=== PATIENT | male | born 1935 | race Caucasian/White ===

== ENCOUNTER 2018-04-27 10:11 | Emergency (ER) | payer OTHER ==
[~2018-04-27] VITALS: Ht 185.4 cm; Wt 79.4 kg
--- NOTE | 2018-04-27 10:18 | NUR ---
PT BIB PA FROM SNF WITH A C/O GENERALIZED WEAKNESS. PER TRIAGE, PT FELL YESTERDAY AND THE FACILITY CALLED 911. PT REFUSED TO GO WITH RESCUE AT THAT TIME. PT IS AA&O X1. PT IS PLEASANT AND ANSWERS ALL QUESTIONS. PT HAS EQUAL, 5/5 BILATERAL HAND FORMING MACHINE TENDER, 5/5 DORSI FLEX BILATERAL FEET. PT IS ABLE TO HOLD EACH LEG UP FOR 5 SEC WITHOUT DRIFT. PT IS ON THE MONITOR AND CONTINUOUS PULSE OX. PT WAS CHANGED INTO A GOWN AND GRIPPER SOCKS PUT ON HIS FEET.
--- NOTE | 2018-04-27 10:19 | NUR ---
PT IS DNR/DNI - COMFORT MEASURES. COPY OF DNR/DNI IN CHART.
--- NOTE | 2018-04-27 10:25 | NUR ---
DR. ANDREWS IS AT THE BEDSIDE W/ PA-C STUDENT.
--- NOTE | 2018-04-27 10:30 | NUR ---
CALLED [facility]
--- NOTE | 2018-04-27 10:59 | NUR ---
SAIRA BORRERO [phone] SECOND [address]
[2018-04-27 11:40] LABS: LYMPHOCYTES # (AUTO) 1.4 /CMM (0.8-4.8); MEAN CORPUSCULAR HGB CONC 35 g/dl (31.0-36.0); MONOCYTES # (AUTO) 0.9 /CMM (0.1-1.30); WHITE BLOOD COUNT (AUTO) 9.9 K/uL (4.3-11.0)
[2018-04-27 11:42] LABS: BASOPHILS # (AUTO) 0.2 /CMM (0.0-0.2); BASOPHILS % (AUTO) 2.1 % (0.0-2.0); EOSINOPHILS % (AUTO) 0.2 % (0.0-6.0); HEMATOCRIT 43 % (39-51); HEMOGLOBIN 14.9 g/dL (13.5-17.5); LYMPHOCYTES % (AUTO) 13.8 % (20.0-44.0); MEAN CORPUSCULAR VOLUME 98 fL (80-96); MONOCYTES % (AUTO) 8.9 % (2.0-12.0); NEUTROPHILS # (AUTO) 7.4 /CMM (1.8-8.9); PLATELET COUNT (AUTO) 246 /CMM (150-450); RED BLOOD CELL COUNT(AUTO) 4.33 MIL/uL (4.5-6.0)
[2018-04-27 11:49] LABS: CALCIUM, SERUM 9.3 mg/dL (8.5-10.1); CARBON DIOXIDE 27 mmol/L (21-32); CHLORIDE 105 mmol/L (98-107); GLUCOSE 143 mg/dL (74-106); POTASSIUM 4.7 mmol/L (3.5-5.1); SODIUM SERUM 139 mmol/L (136-145); UREA NITROGEN, BLOOD 14 mg/dL (7-18)
[2018-04-27 11:57] LABS: TROPONIN I < 0.017 ng/mL (0.00-0.056)
--- NOTE | 2018-04-27 12:03 | NUR ---
CALLED [facility] FOR TRANSPORT BACK TO [facility] [place], ETA 20-30 MIN, TRIP #[id number]
--- NOTE | 2018-04-27 12:36 | NUR ---
Patient discharged to [id number] in stable condition. Written and verbal after care instructions given to ems verbalizes understanding of instruction.
[2018-04-27 12:41] VITALS: BP 122/78
== END 2018-04-27 12:41 | disposition home or self-care (01) ==
LOC: ER 10:12
DX: R53.1 Weakness (principal); I10 Essential (primary) hypertension; G30.9 Alzheimer's disease, unspecified; F02.80 Dementia in other diseases classified elsewhere, unspecified severity, without behavioral disturbance, psychotic disturbance, mood disturbance, and anxiety; G20 Parkinson's disease; Z88.6 Allergy status to analgesic agent
CPT/HCPCS: 36415; 71045; 80048; 84484; 85025; 93005; 99285; A4606; Z7610

== ENCOUNTER 2018-04-29 19:09 | Inpatient (IN) | payer OTHER ==
[~2018-04-29] VITALS: Ht 182.9 cm; Wt 86.2 kg
--- NOTE | 2018-04-29 19:51 | NUR ---
SHAHNAZ FROM [facility] FOR AMS SINCE FRIDAY. AAOX2. UNKNOWN BASELINE. PT PLACED ON METER READING CLERK AND POX, PT NOTED TO BE SINUS BRADYCARDIC 47BPM. PT ABLE TO FOLLOW COMMANDS AND ABLE TO HOLD UP ARMS AND LEGS WITHOUT ANY WEAKNESS. PT STATES "IM NOT SURE WHY I AM HERE" WHEN ASKED WHY HE WAS BROUGHT TO THE ER. PT DENIES ANY PAIN OR N/V/D. NO S/S OF ACUTE DISTRESS NOTED. BEDSIDE FOR EVAL. WILL CONTINUE TO MONITOR PT.
[2018-04-29 20:03] LABS: BASOPHILS # (AUTO) 0.3 /CMM (0.0-0.2); BASOPHILS % (AUTO) 4.2 % (0.0-2.0); EOSINOPHILS % (AUTO) 1.2 % (0.0-6.0); HEMATOCRIT 44 % (39-51); HEMOGLOBIN 15.4 g/dL (13.5-17.5); LYMPHOCYTES # (AUTO) 1.6 /CMM (0.8-4.8); LYMPHOCYTES % (AUTO) 20.7 % (20.0-44.0); MEAN CORPUSCULAR HEMOGLOBIN 35 PG (26.0-33.0); MEAN CORPUSCULAR HGB CONC 35 g/dl (31.0-36.0); MEAN CORPUSCULAR VOLUME 100 fL (80-96); MONOCYTES # (AUTO) 0.7 /CMM (0.1-1.30); NEUTROPHILS # (AUTO) 5.2 /CMM (1.8-8.9); NEUTROPHILS % (AUTO) 64.9 % (43.0-81.0); PLATELET COUNT (AUTO) 246 /CMM (150-450); RDW COEFFICIENT OF VARIATION 12.1 (11.5-15.0); RED BLOOD CELL COUNT(AUTO) 4.45 MIL/uL (4.5-6.0); WHITE BLOOD COUNT (AUTO) 7.9 K/uL (4.3-11.0)
--- NOTE | 2018-04-29 20:20 | NUR ---
PT RETURNED FROM CT.
[2018-04-29 20:21] LABS: INR 1.01 (0.87-1.13)
[2018-04-29 20:25] LABS: CARBON DIOXIDE 28 mmol/L (21-32); CHLORIDE 106 mmol/L (98-107); CREATININE 0.9 mg/dL (0.6-1.3); GLUCOSE 139 mg/dL (74-106); POTASSIUM 4.2 mmol/L (3.5-5.1); SODIUM SERUM 143 mmol/L (136-145); UREA NITROGEN, BLOOD 15 mg/dL (7-18)
[2018-04-29 20:31] LABS: ALANINE AMINOTRANSFERASE 25 U/L (12-78); ALBUMIN 3.5 g/dL (3.4-5.0); ALKALINE PHOSPHATASE 84 U/L (46-116); ASPARTATE AMINOTRANSFERASE 34 U/L (15-37); BILIRUBIN,DIRECT 0.3 mg/dL (0.0-0.2); BILIRUBIN,TOTAL 1.3 mg/dL (0.2-1.0); TOTAL PROTEIN, SERUM 6.8 g/dL (6.4-8.2)
[2018-04-29 20:33] LABS: TROPONIN I 0.032 ng/mL (0.00-0.056)
--- NOTE | 2018-04-29 21:00 | NUR ---
Patient is resting comfortably in bed with with no s/s of distress noted. VSS
--- NOTE | 2018-04-29 21:13 | NUR ---
TELE 327-2 FOR GENERAL WEAKNESS AND BRADYCARDIA, ADMITTING
[2018-04-29 21:32] LABS: BILIRUBIN,URINE 1+ (NEGATIVE); BLOOD, URINE 1+ Ery/uL (NEGATIVE); COLOR,URINE DARK YELLO (YELLOW); KETONES,URINE 1+ (NEGATIVE); LEUKOCYTE ESTERASE ,URINE NEGATIVE (NEGATIVE); NITRITE, URINE NEGATIVE (NEGATIVE); PH,URINE 5.5 (5.0-8.0); PROTEIN,URINE 2+ mg/dl (NEGATIVE); UGLUCOSE NEGATIVE (NEGATIVE)
--- NOTE | 2018-04-29 21:35 | NUR ---
report given to AXLE BEARING POLISHER RV for ROSEANNE.
[2018-04-29] MEDS ORDERED: BENA10TA9 PO (21:40)
[2018-04-29] MEDS ORDERED: DONE5TAB34 PO (21:40)
[2018-04-29] MEDS ORDERED: MEMA10TA PO (21:40)
[2018-04-29] MEDS ORDERED: PARO20TA7 PO (21:40)
[2018-04-29] MEDS ORDERED: ACET-2067 PO (21:40)
[2018-04-29] MEDS ORDERED: AZIT250T13 PO (21:40)
[2018-04-29 21:41] LABS: APPEARANCE,URINE Slightly Cloudy (CLEAR)
--- NOTE | 2018-04-29 21:50 | NUR ---
RN NOTES RECEIVED PATIENT FROM ER FOR DX PNA, BRADYCARDIA. PATIENT AO X 1, ABLE TO MAKE NEEDS KNOWN. NO ACUTE DISTRESS NOTED. DENIES ANY PAIN AT THIS TIME. TELE READING SINUS NAE HR 49. IV SITE PATENT, INTACT; FLUSHED. SKIN INTACT. SAFETY REMINDERS GIVEN. PATIENT GIVEN ORIENTATION TO ROOM AND UNIT. ON LOW BED WITH BILATERAL UPPER SIDE RAIL UP; CALL MILLER WITHIN EASY REACH. WILL CONTINUE TO MONITOR.
[2018-04-29 21:55] LABS: BACTERIA,URINE None seen /HPF (None Seen); SQUAMOUS EPITHELIAL CELL,UR Rare /HPF (None Seen); WBC,URINE 0-2 /HPF (0-3)
[2018-04-29 22:10] VITALS: BP 128/51
[2018-04-29] MEDS ORDERED: ACETAMINOPHEN 325 MG TABLET PO PRN (22:30)
[2018-04-29] MEDS ORDERED: ALBUTEROL FS 2.5 MG/3 ML VIAL.NEB NEB PRN (23:00)
[2018-04-29] MEDS ORDERED: IV NS 0.9% 1,000 ML BAG IV SCH (23:00)
[2018-04-29] MEDS: IV NS 0.9% 1,000 ML IV PRN (23:11)
[2018-04-29] MEDS ORDERED: CEFTRIAXONE 1 G VIAL ONE (23:34)
[2018-04-29] MEDS: CEFTRIAXONE 1 G in IV D5W 50 ML IV SCH (23:39)
[2018-04-30 04:00] VITALS: BP 159/65
[2018-04-30] MEDS: DONEPEZIL 5 MG TABLET PO SCH ×2 (06:02→17:28)
--- NOTE | 2018-04-30 06:10 | NUR ---
NOTIFIED DR. BORRERO THAT PATIENT IS VERY AGITATED, TRYING TO GET OUT OF BED; POOR SAFETY AWARENESS. MD ORDERED HALDOL 1 MG IM Q 6 HOURS PRN, NOTED AND CARRIED OUT.
[2018-04-30] MEDS: HALOPERIDOL LACTATE INJ 5 MG/ML VIAL IM PRN ×2 (06:30→14:35)
--- NOTE | 2018-04-30 06:50 | NUR ---
RN NOTES PATIENT AWAKE, RESPIRATIONS EVEN. NO SIGNS OF PAIN NOTED. MUCH CALMER NOW POST HALDOL ADMINISTRATION. DUE MEDS GIVEN WITH NO ASE NOTED. NEEDS ATTENDED. KEPT CLEAN, DRY, AND COMFORTABLE. SAFETY PRECAUTIONS AND COMFORT MEASURES IN PLACE. WILL GIVE REPORT TO DAY SHIFT FOR CONTINUITY OF CARE.
--- NOTE | 2018-04-30 07:35 | NUR ---
RN OPENING NOTES RECEIVED PT. PT IS STABLE AND IN BED. NO S/S OF RESPIRATORY DISTRESS OR SOB. NO C/O PAIN AT THIS TIME. PT IS A/OX1 WITH AMS BY COMPARISON TO BASELINE ACCORDING TO STATEMENT FROM RESIDENTIAL FACILITY. PS IN ON TELE MONITO, HR FREQUENTLY BETWEEN 40-50 BPM FOR SINUS NAE. IV ACCESS LOCATED ON RFA 18G, INFUSING NS AT 75 ML/HR. PER APPRENTICE FUNERAL DIRECTOR REPORT, PT FREQUENTLY ATTEMPTING TO GET OUT OF BED DESPITE CONTINUED REORIENTATION REGARDING PT'S SAFETY CONCERNS. BED ALARM PLACED IN ON POSITION. SAFETY MEASURES IN PLACE, CALL LIGHT WITHIN REACH. WILL CONTINUE TO MONITOR.
[2018-04-30] MEDS: AZITHROMYCIN 250 MG TABLET PO SCH (08:10)
[2018-04-30] MEDS: MEMANTINE HCL 5 MG TABLET PO SCH (08:10)
[2018-04-30] MEDS: PANTOPRAZOLE 40 MG TABLET.DR PO SCH (08:10)
[2018-04-30] MEDS: PAROXETINE HCL 20 MG TABLET PO SCH (08:11)
[2018-04-30] MEDS: BENAZEPRIL HCL 10 MG TABLET PO SCH (08:13)
[2018-04-30] MEDS: ENOXAPARIN SODIUM 30 MG/0.3 ML DISP.SYRIN SQ SCH (08:23)
[2018-04-30 09:23] VITALS: BP 148/61
[2018-04-30 14:55] LABS: BASOPHILS # (AUTO) 0.1 /CMM (0.0-0.2); BASOPHILS % (AUTO) 0.7 % (0.0-2.0); EOSINOPHILS % (AUTO) 0.2 % (0.0-6.0); HEMATOCRIT 34 % (39-51); HEMOGLOBIN 11.7 g/dL (13.5-17.5); LYMPHOCYTES # (AUTO) 1.1 /CMM (0.8-4.8); LYMPHOCYTES % (AUTO) 12.1 % (20.0-44.0); MEAN CORPUSCULAR HEMOGLOBIN 35 PG (26.0-33.0); MEAN CORPUSCULAR HGB CONC 35 g/dl (31.0-36.0); MEAN CORPUSCULAR VOLUME 101 fL (80-96); MONOCYTES # (AUTO) 0.7 /CMM (0.1-1.30); MONOCYTES % (AUTO) 7.3 % (2.0-12.0); NEUTROPHILS # (AUTO) 7.5 /CMM (1.8-8.9); NEUTROPHILS % (AUTO) 79.7 % (43.0-81.0); PLATELET COUNT (AUTO) 193 /CMM (150-450); RED BLOOD CELL COUNT(AUTO) 3.34 MIL/uL (4.5-6.0); WHITE BLOOD COUNT (AUTO) 9.4 K/uL (4.3-11.0)
[2018-04-30 16:21] VITALS: BP 119/79
[2018-04-30] MEDS: LACTOBACILLUS RHAMNOSUS GG 1 EACH CAP.SPRINK PO SCH (17:29)
--- NOTE | 2018-04-30 19:02 | NUR ---
RN CLOSING NOTE PT IN BED RESTING. PT EXPERIENCED EPISODES OF ASPIRATION WITH MEALS/AFTERNOON MEDICATIONS. WILL ENDORSE TO PRODUCTION PLANNER SCHEDULER, PO MEDS/FOOD HELD FOR NOW. ALL PT NEEDS ANTICIPATED AND MET. SAFETY MEASURES IN PLACE, CALL LIGHT IN REACH. WILL ENDORSE TO PRODUCTION PLANNER SCHEDULER FOR ROSEANNE.
--- NOTE | 2018-04-30 19:30 | NUR ---
RN NOTES RECEIVED PATIENT IN BED ASLEEP, EASILY AROUSABLE. AO X 1, ABLE TO MAKE NEEDS KNOWN. NO ACUTE DISTRESS NOTED. NO SIGNS OF PAIN NOTED. IV SITE PATENT, INTACT; IVF INFUSING ORDERED. ON LOW BED WITH BILATERAL UPPER SIDE RAILS UP. CALL MILLER WITHIN EASY REACH. WILL CONTINUE TO MONITOR.
[2018-04-30 20:00] VITALS: BP 128/57
--- NOTE | 2018-04-30 21:24 | NUR ---
RN NOTES DR. BORRERO CALLED BACK; MADE AWARE THAT PATIENT WAS NOT TOLERATING ANYTHING PO. DR. BORRERO ORDERED TO PUT PATIENT NPO AND ST EVAL IN AM; NOTED AND CARRIED OUT.
[2018-04-30] MEDS: CEFTRIAXONE 1 G in IV D5W 50 ML IV SCH (22:25)
--- NOTE | 2018-05-01 06:10 | NUR ---
RN NOTES PATIENT ASLEEP, AROUSABLE. RESPIRATIONS EVEN. NO SIGNS OF PAIN NOTED. NEEDS ATTENDED. KEPT CLEAN, DRY, AND COMFORTABLE. REPOSITIONED Q 2 HOURS. SAFETY PRECAUTIONS AND COMFORT MEASURES IN PLACE. WILL GIVE REPORT TO DAY SHIFT FOR CONTINUITY OF CARE.
[2018-05-01] MEDS: IV NS 0.9% 1,000 ML IV PRN ×2 (06:37→22:41)
--- NOTE | 2018-05-01 07:20 | NUR ---
RN NOTES RECEIVED PT. PT IN BED ASLEEP, AROUSABLE. NO S/S OF RESPIRATORY DISTRESS OR SOB. NO C/O PAIN AT THIS TIME. KEPT NPO AT THIS TIME, WAITING FOR ST EVAL. PT IS A/OX1, IV ACCESS LOCATED ON RFA 18G, INFUSING NS AT 75 ML/HR. PER FLYING I INSTRUCTOR REPORT, PT FREQUENTLY ATTEMPTING TO GET OUT OF BED DESPITE CONTINUED REORIENTATION REGARDING PT'S SAFETY CONCERNS. BED ALARM PLACED IN ON POSITION. SAFETY MEASURES IN PLACE, CALL LIGHT WITHIN REACH. WILL CONTINUE TO MONITOR.
[2018-05-01] MEDS: PANTOPRAZOLE 40 MG TABLET.DR PO SCH (07:30)
[2018-05-01 07:36] LABS: CALCIUM, SERUM 8.3 mg/dL (8.5-10.1); CARBON DIOXIDE 26 mmol/L (21-32); CHLORIDE 112 mmol/L (98-107); CREATININE 0.8 mg/dL (0.6-1.3); GLUCOSE 110 mg/dL (74-106); MAGNESIUM 1.8 mg/dL (1.8-2.4); POTASSIUM 3.8 mmol/L (3.5-5.1); SODIUM SERUM 146 mmol/L (136-145); UREA NITROGEN, BLOOD 12 mg/dL (7-18)
[2018-05-01 08:00] VITALS: BP 148/85
[2018-05-01] MEDS: MEMANTINE HCL 5 MG TABLET PO SCH (09:00)
[2018-05-01] MEDS: BENAZEPRIL HCL 10 MG TABLET PO SCH (09:00)
[2018-05-01] MEDS: AZITHROMYCIN 250 MG TABLET PO SCH (09:00)
[2018-05-01] MEDS: PAROXETINE HCL 20 MG TABLET PO SCH (09:00)
[2018-05-01] MEDS: LACTOBACILLUS RHAMNOSUS GG 1 EACH CAP.SPRINK PO SCH ×2 (09:00→17:17)
[2018-05-01] MEDS: ENOXAPARIN SODIUM 30 MG/0.3 ML DISP.SYRIN SQ SCH (09:43)
--- NOTE | 2018-05-01 10:39 | NUR ---
RN NOTES RECEIVED ORDER FOR VIDEO SWALLOW STUDY AND AND PT EVAL. ORDER NOTED AND CARRIED OUT.
[2018-05-01] MEDS ORDERED: BARIUM SULFATE 240 ML ORAL.SUSP PO ONE (11:01)
[2018-05-01] MEDS ORDERED: BARIUM SULFATE 148 GM SUSP.RECON PO ONE (11:01)
[2018-05-01] MEDS: HALOPERIDOL LACTATE INJ 5 MG/ML VIAL IM PRN (14:55)
[2018-05-01 16:00] VITALS: BP 131/80
[2018-05-01] MEDS: DONEPEZIL 5 MG TABLET PO SCH (17:17)
--- NOTE | 2018-05-01 17:38 | NUR ---
RN NOTES DURING DINNER, OBSERVED PATIENT COUGHED AFTER THE THIRD SPOON. INSTRUCTED PATIENT TO SWALLOW BUT PATIENT DOES NOT FOLLOW COMMANDS. STOPPED FEEDING THE PATIENT AND INFORMED DR. BORRERO. FOR SAFETY PATIENT WILL BE NPO AT THIS TIME.
--- NOTE | 2018-05-01 18:28 | NUR ---
RN NOTES PATIENT A/OX1, WITH EPISODE OF CONFUSION AT TIMES, ATTEMPTED TO GET OUT OF BED A COUPLE OF TIMES, REORIENTED, BREATHING EVEN AND UNLABORED, NO DISTRESS NOTED, KEPT PATIENT NPO AT THIS TIME FOR SAFETY. ASSISTED PATIENT WITH TURNING AND REPOSITIONING, BUT PATIENT ABLE TO MOVE ALL EXTREMITIES INDEPENDENTLY, AM CARE AND PM CARE RENDERED, SKIN CARE PROVIDED. PATIENT'S NEEDS ATTENDED AND MET. CALL LIGHT WITHIN REACH, BED ALARM ON, BED IN LOW AND LOCKED POSITION, SIDERAILS X2 UP, WILL CONTINUE TO MONITOR.
--- NOTE | 2018-05-01 19:50 | NUR ---
MS RN INITIAL NOTE PT IS IN BED SLEEPING, EASILY AROUSED. NO SIGNS OF SOB OR DISTRESS, BREATHING EVENLY AND UNLABORED PN RA. IV ACCESS IS INTACT AND PATENT, WRAPPED IN KERLIX WITH A SLEEVE. BED IS IN LOW AND LOCKED POSITION, BED ALARM IS ON. WILL CONTINUE TO MONITOR PT
[2018-05-01 20:00] VITALS: BP 150/69
[2018-05-01] MEDS: CEFTRIAXONE 1 G in IV D5W 50 ML IV SCH (22:34)
[2018-05-02 06:52] LABS: BASOPHILS % (AUTO) 0.3 % (0.0-2.0); EOSINOPHILS % (AUTO) 2.1 % (0.0-6.0); HEMATOCRIT 41 % (39-51); HEMOGLOBIN 13.8 g/dL (13.5-17.5); LYMPHOCYTES # (AUTO) 1.4 /CMM (0.8-4.8); LYMPHOCYTES % (AUTO) 22.9 % (20.0-44.0); MEAN CORPUSCULAR HEMOGLOBIN 35 PG (26.0-33.0); MEAN CORPUSCULAR HGB CONC 34 g/dl (31.0-36.0); MEAN CORPUSCULAR VOLUME 103 fL (80-96); MONOCYTES # (AUTO) 0.6 /CMM (0.1-1.30); MONOCYTES % (AUTO) 10.7 % (2.0-12.0); NEUTROPHILS # (AUTO) 3.8 /CMM (1.8-8.9); PLATELET COUNT (AUTO) 208 /CMM (150-450); RDW COEFFICIENT OF VARIATION 12.5 (11.5-15.0); RED BLOOD CELL COUNT(AUTO) 3.98 MIL/uL (4.5-6.0); WHITE BLOOD COUNT (AUTO) 5.9 K/uL (4.3-11.0)
--- NOTE | 2018-05-02 06:54 | NUR ---
MS RN CLOSING NOTE PT IS IN BED RESTING. NO SIGNS OF SOB OR DISTRESS, BREATHING EVENLY AND UNLABORED. IV ACCESS IS INTACT AND PATENT. ALL NEEDS WERE ANTICIPATED AND MET. BED IS IN LOW AND LOCKED POSITION, 3X SIDE RAILS ARE UP . BED ALARM IS IN ON. WILL ENDORSE TO DAYSHIFT
[2018-05-02 07:15] LABS: CALCIUM, SERUM 8.4 mg/dL (8.5-10.1); CARBON DIOXIDE 23 mmol/L (21-32); CHLORIDE 112 mmol/L (98-107); CREATININE 0.8 mg/dL (0.6-1.3); GLUCOSE 122 mg/dL (74-106); MAGNESIUM 1.8 mg/dL (1.8-2.4); POTASSIUM 3.7 mmol/L (3.5-5.1); SODIUM SERUM 145 mmol/L (136-145); UREA NITROGEN, BLOOD 11 mg/dL (7-18)
[2018-05-02] MEDS: PANTOPRAZOLE 40 MG TABLET.DR PO SCH (07:30)
--- NOTE | 2018-05-02 07:34 | NUR ---
MS RN OPENING NOTES RECEIVED PT LAYING IN BED WITH HOB SLIGHTLY ELEVATED. PT APPEARS TO BE A/O X1, RESPIRATIONS ARE EVEN AND UNLABORED, NOT IN ANY ACUTE DISTRESS NOTED. DENIES ANY PAIN AT THIS TIME. NO C/O N/V, SOB NOTED. IV SITE INTACT, NO INFILTRATION NOTED. IV FLUIDS RUNNING AT 75ML/HR. UPON REPORT, WAS INFORMED THAT PT TRIED TO GET OUT OF BED DURING DAY SHIFT, BUT DURING THE NIGHT PT WAS CALM. INSTRUCTED PT TO USE CALL LIGHT WHEN ASSISTANCE IS NEEDED, CALL LIGHT IS LEFT WITHIN REACH. REORIENTED PT. SAFETY MEASURES ARE IN PLACE. WILL MONITOR FOR CONTINUITY OF CARE.
[2018-05-02 08:00] VITALS: BP 149/76
[2018-05-02] MEDS: BENAZEPRIL HCL 10 MG TABLET PO SCH (09:00)
[2018-05-02] MEDS: PAROXETINE HCL 20 MG TABLET PO SCH (09:00)
[2018-05-02] MEDS: LACTOBACILLUS RHAMNOSUS GG 1 EACH CAP.SPRINK PO SCH ×2 (09:00→17:00)
[2018-05-02] MEDS: AZITHROMYCIN 250 MG TABLET PO SCH (09:00)
[2018-05-02] MEDS: MEMANTINE HCL 5 MG TABLET PO SCH (09:00)
[2018-05-02] MEDS: ENOXAPARIN SODIUM 30 MG/0.3 ML DISP.SYRIN SQ SCH (09:03)
--- NOTE | 2018-05-02 09:10 | NUR ---
MS RN NOTES PT IS UNABLE TO SWALLOW, AT RISK FOR ASPIRATION. PT IS ALSO CURRENTLY NPO. WILL CONTINUE TO MONITOR.
[2018-05-02] MEDS ORDERED: hydrALAZINE HCL IV 20 MG VIAL IV PRN (12:00)
[2018-05-02] MEDS: IV NS 0.9% 1,000 ML IV PRN (13:34)
--- NOTE | 2018-05-02 16:50 | NUR ---
MS RN NOTES-- ST EVAL ST EVAL DONE. PT IS AT HIGH RISK OF ASPIRATION. PT UNABLE TO SWALLOW HONEY THICKENED LIQUIDS, PER ST. HOB KEPT ELEVATED TO PREVENT ASPIRATION.
[2018-05-02] MEDS: DONEPEZIL 5 MG TABLET PO SCH (18:00)
--- NOTE | 2018-05-02 18:19 | NUR ---
MS RN CLOSING NOTES ALL NEEDS MET AND RENDERED. PT REMAINS A/O X1, AFEBRILE. RESPIRATIONS ARE EVEN AND UNLABORED. HOB KEPT ELEVATED FOR RISK FOR ASPIRATION. REORIENTED PT. REPOSITIONED PER PROTOCOL. IV SITE INTACT, NO INFILTRATION NOTED. DRESSING KEPT CLEAN AND DRY. IV FLUIDS RUNNING AT 75ML/HR, TOLERATING WELL. SAFETY MEASURES ARE IN PLACE. BED ALARM IS ON, BED IS IN ITS LOWEST POSITION, SIDE RAILS UP. WILL ENDORSE TO NEXT SHIFT FOR CONTINUITY OF CARE.
[2018-05-02 20:00] VITALS: BP 151/70
--- NOTE | 2018-05-02 20:00 | NUR ---
MS HEALTH DATA ANALYST INITIAL NOTES PT SEEN IN BED AWAKE AND ALERT , RESPIRATION EVEN AND NON-LABORED, RE-ORIENTED WHERE HE AT AND HOW TO USED THE CALL LIGHTS SYSTEM. HE STILL WITH IVF NS AT 75ML/HR INFUSING AT THIS TIME. SKIN WARM AND DRY TO TOUCH, NO EDEMA NOTED. NO SIGNS OF ANY DISCOMFORT OR ANY ACUTE DISTRESS NOTED. KEPT HIM HOB ELEVATED AT ALL TIMES FOR ASPIRATION PRECAUTION. BED ALARM SET AND SIDE RAILS X3 UP AND BE IN LOW AND LOCK IN POSITION. WILL CONTINUE MONITORING.
[2018-05-02] MEDS: CEFTRIAXONE 1 G in IV D5W 50 ML IV SCH (23:43)
[2018-05-03] MEDS: IV NS 0.9% 1,000 ML IV PRN (03:52)
--- NOTE | 2018-05-03 07:00 | NUR ---
MS REGISTERED OCCUPATIONAL THERAPIST CLOSING NOTES PT AWAKE AND ALERT AT THIS TIME AFTER MORNING CARE DONE. IVF NS STILL INFUSING. STABLE PAN THE NIGHT AND SLEPT WELL. RESPIRATION EVEN AND NON-LABORED. NO AGITATION NOTED AT THIS TIME. KEPT HIM WARM AND COMFORTABLE AT ALL TIMES. ENDORSE TO AM NURSE SOUMYA/RN FOR CONTINUITY OF CARE. BED ALARM SET FOR PT SAFETY. BED IN LOW AND LOCK IN POSITION WITH SIDE RAILS X4 UP .
--- NOTE | 2018-05-03 07:20 | NUR ---
MSRN OPENING. PT RECEIVED A&0X1, WAKING AND RESTING IN BED. PT NPO. PT SPEECH SLURRED AND DIFFICULT TO UNDERSTAND. PT WITHOUT S/S OD RESP DISTRESS, LUNGS AUSCULTATED WITH SOME CRACKLES AND DIMINISHED IN LOWER LOBES. PT DENIES PAIN AND IS WITHOUT S/S OF DISTRESS OR DISCOMFORT. PT WITH IVC AT R FA INTACT AND OPERATIONAL AND BANDAGED FOR SAFETY, FLUIDS PER RX. PT BED IN LOWEST LOCKED POSITION WITH HOB EL;EVATED, HANDRAILSX2, BED ALARM ON AND CALL MILLER WITHIN REACH. PT BEEFED ON TODAY'S POC, WILL REORIENTATE NEEDED.
[2018-05-03] MEDS: PANTOPRAZOLE 40 MG TABLET.DR PO SCH (07:30)
[2018-05-03 07:39] LABS: BASOPHILS # (AUTO) 0.1 /CMM (0.0-0.2); BASOPHILS % (AUTO) 1.1 % (0.0-2.0); EOSINOPHILS % (AUTO) 0.6 % (0.0-6.0); HEMATOCRIT 44 % (39-51); LYMPHOCYTES # (AUTO) 1.1 /CMM (0.8-4.8); LYMPHOCYTES % (AUTO) 14.9 % (20.0-44.0); MEAN CORPUSCULAR HEMOGLOBIN 34 PG (26.0-33.0); MEAN CORPUSCULAR HGB CONC 34 g/dl (31.0-36.0); MEAN CORPUSCULAR VOLUME 102 fL (80-96); MONOCYTES # (AUTO) 0.5 /CMM (0.1-1.30); MONOCYTES % (AUTO) 6.6 % (2.0-12.0); NEUTROPHILS # (AUTO) 5.7 /CMM (1.8-8.9); NEUTROPHILS % (AUTO) 76.8 % (43.0-81.0); PLATELET COUNT (AUTO) 239 /CMM (150-450); RDW COEFFICIENT OF VARIATION 12.7 (11.5-15.0); RED BLOOD CELL COUNT(AUTO) 4.36 MIL/uL (4.5-6.0); WHITE BLOOD COUNT (AUTO) 7.5 K/uL (4.3-11.0)
[2018-05-03 07:56] LABS: CALCIUM, SERUM 8.6 mg/dL (8.5-10.1); CARBON DIOXIDE 21 mmol/L (21-32); CHLORIDE 109 mmol/L (98-107); CREATININE 0.8 mg/dL (0.6-1.3); GLUCOSE 123 mg/dL (74-106); MAGNESIUM 1.8 mg/dL (1.8-2.4); PHOSPHORUS 3.1 mg/dL (2.5-4.9); POTASSIUM 3.6 mmol/L (3.5-5.1); SODIUM SERUM 146 mmol/L (136-145); UREA NITROGEN, BLOOD 13 mg/dL (7-18)
[2018-05-03 08:00] VITALS: BP 152/70
[2018-05-03] MEDS: LACTOBACILLUS RHAMNOSUS GG 1 EACH CAP.SPRINK PO SCH ×2 (09:00→16:14)
[2018-05-03] MEDS: AZITHROMYCIN 250 MG TABLET PO SCH (09:00)
[2018-05-03] MEDS: PAROXETINE HCL 20 MG TABLET PO SCH ×2 (09:00→16:14)
[2018-05-03] MEDS: MEMANTINE HCL 5 MG TABLET PO SCH ×2 (09:00→16:15)
[2018-05-03] MEDS: BENAZEPRIL HCL 10 MG TABLET PO SCH ×2 (09:00→16:15)
[2018-05-03] MEDS: ENOXAPARIN SODIUM 30 MG/0.3 ML DISP.SYRIN SQ SCH (09:32)
--- NOTE | 2018-05-03 11:50 | NUR ---
MSRN NOTE. PT G.TUBE PLACED AND AIR 'SWOOSH' AUSCULTATED WITH RNX2, STAT XRAY ORDERED FOR PLACEMENT CONFIRMATION. TUBE CLAMPED AT THIS TIME. PT STARTED WITH RAFAELA FOR SAFETY.
--- NOTE | 2018-05-03 13:00 | NUR ---
MSRN NOTES. PT WITH AUDIBLE GURGLE, AFTER ORAL SUCTIONING RT CALLED FOR DEEP SUCTIONING. 150CC APPROX REMOVED. PT SAO2 98%. NO OBVIOUS RESP DISTRESS.
--- NOTE | 2018-05-03 13:30 | NUR ---
MSRN NOTES. NG TUBE PLACEMENT ADVANCED PER CXR. GASTRIC SECRETIONS ASPIRATED.
[2018-05-03 16:00] VITALS: BP 165/80
--- NOTE | 2018-05-03 16:00 | NUR ---
MSRN NOTES. BAY STOCKER CC REQUESTING SKIPPED AM LOTENSIN, NAMENDA AND PAXIL BE ADMINISTERED.
[2018-05-03] MEDS ORDERED: ALBUTEROL FS 2.5 MG/3 ML VIAL.NEB NEB SCH ×2 (17:00→21:00)
[2018-05-03] MEDS: DONEPEZIL 5 MG TABLET PO SCH (17:22)
--- NOTE | 2018-05-03 19:10 | NUR ---
MSRN CLSOING. PT REMAINS A&0X1. PT NPO. PT WITH BI LAT MITTENS. PT WITH NG TUBE INSITU. PT SPEECH SLURRED AND DIFFICULT TO UNDERSTAND. PT TOLERATING ROOM AIR AND WITHOUT S/S OF DISTRESS, AIRWAY SOUNDS CLEAR AT THIS TIME. PT WITHOUT S/S OF PAIN OR DISCOMFORT. PT WITH IVC AT R FA INTACT AND OPERATIONAL AND BANDAGED FOR SAFETY, FLUIDS PER RX. PT BED IN LOWEST LOCKED POSITION WITH HOB ELEVATED, HANDRAILSX2, BED ALARM ON AND CALL MILLER WITHIN REACH. ALL DAY NURSE DUTIES ATTENDED TO AND PT APPEARS WITHOUT CONCERN OR COMPLAINT.
--- NOTE | 2018-05-03 19:33 | NUR ---
MS RN NOTES Patient received in bed, intermittently awaken, easily arousable. HOB elevated with NG tube in place - placement confirmed by xray per endorsement. Patient sounds congested with no SOB noted. Oxygen saturating @95% Room air. RT aware of orders. Safety measures in place. Bed in lowest position with bed alarm on and call light within reach. Will continue to monitor and assess patient.
[2018-05-03 19:54] VITALS: BP 157/86
--- NOTE | 2018-05-03 19:57 | NUR ---
RT NOTE NT SUCTION PERFORMED WITH NO COMPLICATIONS. MODERATE THIN WHITE SECRETIONS. NO RESP DISTRESS OR SOB NOTED. MIGUEL HILLMAN PRESENT.
--- NOTE | 2018-05-03 19:58 | NUR ---
MS RN NOTES - RT RT present. Patient has cough with mod thin secretions. Deep suctioning performed by RT. No respiratory distress noted. HOB elevated. O2 sat @95-96% room air. Will continue to monitor.
[2018-05-03] MEDS: IPRATROPIUM NEB FS 0.5 MG/2.5 ML AMPUL.NEB NEB SCH ×2 (20:28→20:33)
[2018-05-03] MEDS: ALBUTEROL FS 2.5 MG/3 ML VIAL.NEB NEB SCH (20:29)
[2018-05-04] MEDS: ACETYLCYSTEINE 10% SOLN 400 MG/4 ML VIAL NEB SCH ×4 (00:37→23:06)
[2018-05-04] MEDS: ALBUTEROL FS 2.5 MG/3 ML VIAL.NEB NEB SCH ×4 (00:37→19:56)
[2018-05-04] MEDS: IPRATROPIUM NEB FS 0.5 MG/2.5 ML AMPUL.NEB NEB SCH ×4 (00:37→19:56)
--- NOTE | 2018-05-04 03:20 | NUR ---
MS RN NOTES Patient in bed, sleeping but easily aroused. HOB elevated. No SOB noted. Not in any type of distress. Safety measures in place. Bed in lowest position with bed alarm on and call light within reach. Will continue to monitor patient.
--- NOTE | 2018-05-04 05:46 | NUR ---
MS RN - CLOSING NOTES Patient in bed, sleeping but easily aroused. HOB elevated. No SOB noted. Not in any type of distress. No complaints of pain. No moaning or facial grimacing noted or reported. Anticipated needs provided and met.Oxygen saturation: 94-96% in room air. Turned and repositioned every 2 hours. Offloaded bilateral heels and elbows. Hand mittens in place with frequent skin monitoring for present of pulse and skin condition. Safety measures in place. Bed in lowest position with bed alarm on and call light within reach. Will endorse to oncoming shift nurse.
[2018-05-04 07:41] LABS: BASOPHILS # (AUTO) 0.1 /CMM (0.0-0.2); BASOPHILS % (AUTO) 0.6 % (0.0-2.0); EOSINOPHILS % (AUTO) 0.1 % (0.0-6.0); HEMATOCRIT 45 % (39-51); HEMOGLOBIN 15.4 g/dL (13.5-17.5); LYMPHOCYTES # (AUTO) 0.8 /CMM (0.8-4.8); LYMPHOCYTES % (AUTO) 6.5 % (20.0-44.0); MEAN CORPUSCULAR HEMOGLOBIN 34 PG (26.0-33.0); MEAN CORPUSCULAR HGB CONC 34 g/dl (31.0-36.0); MEAN CORPUSCULAR VOLUME 98 fL (80-96); MONOCYTES # (AUTO) 0.8 /CMM (0.1-1.30); MONOCYTES % (AUTO) 6.2 % (2.0-12.0); NEUTROPHILS # (AUTO) 10.7 /CMM (1.8-8.9); NEUTROPHILS % (AUTO) 86.6 % (43.0-81.0); PLATELET COUNT (AUTO) 238 /CMM (150-450); RDW COEFFICIENT OF VARIATION 11.9 (11.5-15.0); RED BLOOD CELL COUNT(AUTO) 4.55 MIL/uL (4.5-6.0); WHITE BLOOD COUNT (AUTO) 12.4 K/uL (4.3-11.0)
[2018-05-04 08:00] VITALS: BP 148/73
[2018-05-04 08:07] LABS: CALCIUM, SERUM 8.6 mg/dL (8.5-10.1); CARBON DIOXIDE 23 mmol/L (21-32); CHLORIDE 112 mmol/L (98-107); GLUCOSE 163 mg/dL (74-106); MAGNESIUM 1.9 mg/dL (1.8-2.4); PHOSPHORUS 3.7 mg/dL (2.5-4.9); POTASSIUM 3.3 mmol/L (3.5-5.1); SODIUM SERUM 148 mmol/L (136-145); UREA NITROGEN, BLOOD 18 mg/dL (7-18)
[2018-05-04] MEDS ORDERED: ACETAMINOPHEN 650 MG/20.3 ML UDC NG PRN (09:00)
[2018-05-04] MEDS ORDERED: PHARMACY TO CHANGE PO MEDS TO GT/NG XX PRN (09:00)
[2018-05-04] MEDS: MEMANTINE HCL 5 MG TABLET NG SCH (09:08)
[2018-05-04] MEDS: BENAZEPRIL HCL 10 MG TABLET NG SCH (09:09)
[2018-05-04] MEDS: PAROXETINE HCL 20 MG TABLET NG SCH (09:09)
[2018-05-04] MEDS: PANTOPRAZOLE 40 MG/PACK PACK NG SCH (09:09)
[2018-05-04] MEDS: LACTOBACILLUS RHAMNOSUS GG 1 EACH CAP.SPRINK NG SCH ×2 (09:09→17:31)
[2018-05-04] MEDS: ENOXAPARIN SODIUM 30 MG/0.3 ML DISP.SYRIN SQ SCH (09:10)
--- NOTE | 2018-05-04 09:10 | NUR ---
MS RN NOTES PATIENT IN BED, APPEARS LETHARGIC. BREATHING ON ROOM AIR WITH NO SOB, OXYGEN SAT 98% RA. LEFT NARE PRESENCE OF NGT WITH DEPTH 60cm UPON ASSESSMENT. FAILED SWALLOW EVAL PER REPORT. SEEN BY ST SOTO TODAY, RECOMMEND PEG TUBE FEEDING FOR SKILLED NURSING NUTRITIONAL SUPPORT. ASPIRATION PRECAUTION MAINTAINED, BILATERAL HAND MITTENS IN PLACE, CIRCULATION INTACT. WILL CONT TO MONITOR.
[2018-05-04] MEDS: POTASSIUM CL. PREMIX PERIPHER. 50 ML IV SCH ×3 (12:28→14:52)
[2018-05-04 16:14] VITALS: BP 151/92
[2018-05-04] MEDS: DONEPEZIL 5 MG TABLET NG SCH (17:31)
[2018-05-04] MEDS: IV NS 0.9% 1,000 ML IV PRN (18:31)
--- NOTE | 2018-05-04 19:12 | NUR ---
MS RN CLOSING NOTES PATIENT IN BED, A/O X1. VS REMAINS STABLE, STILL APPEARS LETHARGIC, NO MOANING, NO FACIAL GRIMACE. NGT IN PLACE, CLAMPED. IVC IN RFA WITH IVF NS INFUSING AT 75ML/HR, POTASSIUM SUPPLEMENTED TODAY ORDERED. CURRENTLY NPO, FAILED SWALLOW EVAL. ASPIRATION PRECAUTION MAINTAINED. AFEBRILE DURING THE SHIFT. TITO HAND MITTENS IN PLACE, CIRCULATION INTACT. BED LOW AND LOCKED. ENDORSED TO ONCOMING RN.
--- NOTE | 2018-05-04 19:40 | NUR ---
MS RN NOTES Report at bedside. Patient in bed, intermittently awaken, easily aroused. NG tube in place. IV on Right forearm 18g: patent and intact with NS running @ 75ml/hr. Not in any type of distress. HOB elevated. No SOB noted. Safety measures in place. Will continue to monitor patient.
[2018-05-04 20:00] VITALS: BP 160/95
[2018-05-05] MEDS: ALBUTEROL FS 2.5 MG/3 ML VIAL.NEB NEB SCH ×4 (01:36→19:56)
[2018-05-05] MEDS: IPRATROPIUM NEB FS 0.5 MG/2.5 ML AMPUL.NEB NEB SCH ×4 (01:37→19:56)
--- NOTE | 2018-05-05 02:10 | NUR ---
MS RN - Vitals BP 124/77 P107 R18 SpO2 94%
--- NOTE | 2018-05-05 04:15 | NUR ---
MS RN - VITALS BP 131/89 P 94 RESP 18 TEMP 98.2 SPO2 94% RA
--- NOTE | 2018-05-05 05:28 | NUR ---
MS RN CLOSING NOTES Patient in sleeping in bed, easily aroused. NGT in place. HOB elevated. No SOb noted. Not in any type of distress. IV on right forearm #18g: patent and intact with NS running @75ml/hr. Blood pressure monitored and remained stable. No episodes of high bp. Continue on breathing treatments. Turned and repositioned every two hours and offloaded bilat heels and elbows to reduce pressure on bony prominences. Safety measures in place. Bed in lowest position with bed alarm and call light within reach. Will endorse to oncoming shift nurse
[2018-05-05] MEDS: ACETYLCYSTEINE 10% SOLN 400 MG/4 ML VIAL NEB SCH ×2 (07:58→15:12)
[2018-05-05 08:00] VITALS: BP 123/80
[2018-05-05] MEDS: PANTOPRAZOLE 40 MG/PACK PACK NG SCH (09:52)
[2018-05-05] MEDS: LACTOBACILLUS RHAMNOSUS GG 1 EACH CAP.SPRINK NG SCH ×2 (09:52→19:08)
[2018-05-05] MEDS: BENAZEPRIL HCL 10 MG TABLET NG SCH (09:53)
[2018-05-05] MEDS: PAROXETINE HCL 20 MG TABLET NG SCH (09:53)
[2018-05-05] MEDS: MEMANTINE HCL 5 MG TABLET NG SCH (09:53)
[2018-05-05] MEDS: ENOXAPARIN SODIUM 30 MG/0.3 ML DISP.SYRIN SQ SCH (09:55)
--- NOTE | 2018-05-05 10:12 | NUR ---
WOUND CARE CONSULT: PT PRESENTS WITH SACRAL BONY AREA WITH BLANCHABLE REDNESS, PRESENT ON ADMISSION. LONG THICKENED TOENAILS NOTED WITH CALLUSES TO TOES AND FEET. PT IS IMMOBILE AND INCONTINENT WITH KAILEY SCORE OF 13. NGT NOTED. PT ON AMIE ISOFLEX LOW AIRLOSS BED. ALL SKIN PROTECTION RECOMMENDATIONS DISCUSSED WITH NURSING STAFF .WILL SEE PRN. FARFAN IN AGREEMENT WITH PLAN OF CARE. Addendum: 05/05/18 at 1015 by AZALEA AVILEZ WNDNU Amended: Links added.
--- NOTE | 2018-05-05 10:30 | NUR ---
GIVEN MEDS ONLY PER NG-TOLERATING WELL.
[2018-05-05] MEDS: IV NS 0.9% 1,000 ML IV PRN (10:37)
[2018-05-05 16:00] VITALS: BP 139/75
--- NOTE | 2018-05-05 18:00 | NUR ---
NO CHANGE IN STATUS.
[2018-05-05] MEDS: DONEPEZIL 5 MG TABLET NG SCH (19:08)
--- NOTE | 2018-05-05 19:30 | NUR ---
MS RN NOTES: Received patient in bed, intermittently awaken, easily aroused. NG tube in place. IV on Right forearm 18g; patent and intact with NS running @ 75ml/hr. Not in any type of distress. HOB elevated. No SOB noted. Safety measures in place. Patient stable as endorsed by AM shift RN. Will continue to monitor patient.
[2018-05-05 20:00] VITALS: BP 136/50
[2018-05-05 21:12] VITALS: BP 136/50
[2018-05-06] MEDS: ACETYLCYSTEINE 10% SOLN 400 MG/4 ML VIAL NEB SCH ×4 (00:26→23:48)
[2018-05-06] MEDS: IPRATROPIUM NEB FS 0.5 MG/2.5 ML AMPUL.NEB NEB SCH ×4 (00:30→19:23)
[2018-05-06] MEDS: ALBUTEROL FS 2.5 MG/3 ML VIAL.NEB NEB SCH ×4 (00:30→19:23)
--- NOTE | 2018-05-06 04:10 | NUR ---
RN NOTES: Patient moved bowels x 2. Cleaned and changed. Restraints released. Position changed
[2018-05-06 06:24] LABS: HEMATOCRIT 50 % (39-51); HEMOGLOBIN 16.9 g/dL (13.5-17.5); LYMPHOCYTES # (AUTO) 0.5 /CMM (0.8-4.8); LYMPHOCYTES % (AUTO) 2.5 % (20.0-44.0); MEAN CORPUSCULAR HEMOGLOBIN 35 PG (26.0-33.0); MEAN CORPUSCULAR HGB CONC 34 g/dl (31.0-36.0); MEAN CORPUSCULAR VOLUME 102 fL (80-96); MONOCYTES % (AUTO) 4.6 % (2.0-12.0); NEUTROPHILS # (AUTO) 20.2 /CMM (1.8-8.9); NEUTROPHILS % (AUTO) 92.9 % (43.0-81.0); PLATELET COUNT (AUTO) 267 /CMM (150-450); RDW COEFFICIENT OF VARIATION 13.1 (11.5-15.0); RED BLOOD CELL COUNT(AUTO) 4.85 MIL/uL (4.5-6.0); WHITE BLOOD COUNT (AUTO) 21.7 K/uL (4.3-11.0)
[2018-05-06 06:49] LABS: CALCIUM, SERUM 9.4 mg/dL (8.5-10.1); CARBON DIOXIDE 21 mmol/L (21-32); CHLORIDE 116 mmol/L (98-107); CREATININE 1.3 mg/dL (0.6-1.3); GLUCOSE 148 mg/dL (74-106); MAGNESIUM 2.4 mg/dL (1.8-2.4); SODIUM SERUM 151 mmol/L (136-145); UREA NITROGEN, BLOOD 38 mg/dL (7-18)
[2018-05-06 06:54] LABS: POTASSIUM 2.6 mmol/L (3.5-5.1)
--- NOTE | 2018-05-06 06:59 | NUR ---
RN Notes: wireless field technician Amanda Smith called for critical value of Potassium- 2.6. Called epic, a/w callback
--- NOTE | 2018-05-06 07:28 | NUR ---
RN NOTES: CALLED DR. BORRERO TO REPORT A CRITICAL VALUE OF POTASSIUM. NO ANSWER. LEFT A MESSAGE. A/W CALLBACK
[2018-05-06 07:34] LABS: BAND % (MANUAL) 1 % (0.0-5.0); LYMPHOCYTES % (MANUAL) 2 % (16-48); MONOCYTES % (MANUAL) 10 % (0-11.0); NEUTROPHILS % (MANUAL) 87 (42-76)
--- NOTE | 2018-05-06 07:39 | NUR ---
RN NOTES: DR. BORRERO CALLED BACK; ORDERED 40 MEQ KCL THRU NG TUBE. REPEAT ANOTHER DOSE AFTER 2 HRS.
--- NOTE | 2018-05-06 07:40 | NUR ---
MS RN NOTES: Patient in bed, intermittently awaken, easily aroused. NG tube in place. IV on Right forearm 18g, patent and intact with NS running @ 75ml/hr. Not in any type of distress. HOB elevated. Safety measures in place. Will endorse ROSEANNE to morning shift RN
[2018-05-06 08:00] VITALS: BP 160/88
[2018-05-06] MEDS ORDERED: POTASSIUM CHLORIDE 20 MEQ POWDER PACKET NG ONE ×2 (08:00→10:00)
[2018-05-06] MEDS ORDERED: ENOXAPARIN SODIUM 30 MG/0.3 ML DISP.SYRIN SQ SCH (08:48)
[2018-05-06] MEDS: PAROXETINE HCL 20 MG TABLET NG SCH (08:57)
[2018-05-06] MEDS: PANTOPRAZOLE 40 MG/PACK PACK NG SCH (08:57)
[2018-05-06] MEDS: MEMANTINE HCL 5 MG TABLET NG SCH (08:57)
[2018-05-06] MEDS: LACTOBACILLUS RHAMNOSUS GG 1 EACH CAP.SPRINK NG SCH ×2 (08:57→19:05)
[2018-05-06] MEDS: BENAZEPRIL HCL 10 MG TABLET NG SCH (09:09)
[2018-05-06] MEDS: ENOXAPARIN SODIUM 30 MG/0.3 ML DISP.SYRIN SQ SCH (09:11)
[2018-05-06] MEDS ORDERED: JEVITY 1.2 CAL 1,000 ML BOTTLE GT PRN (10:30)
[2018-05-06] MEDS: IV NS 0.9% 1,000 ML IV PRN (13:25)
[2018-05-06] MEDS ORDERED: LEVOFLOXACIN 750 MG /D5W 150ML 750 MG in PREMIX 1 EA IV SCH (14:00)
[2018-05-06 16:00] VITALS: BP 124/65
--- NOTE | 2018-05-06 18:00 | NUR ---
DR. BORRERO IN AND TUBE FEEDING STARTED,NG TUBE IN PLACE POTASSIUM REPLACEMENT PER NG.
[2018-05-06] MEDS: DONEPEZIL 5 MG TABLET NG SCH (19:06)
--- NOTE | 2018-05-06 19:50 | NUR ---
MS/CART PUSHER; RECEIVED PT IN BED SLEEPING. BREATHING NON LABORED WITH O2 4L NC ON. HOB AT 45 DEGREES. WITH NGT FEEDING ON PROGRESS. IVF ON PROGRESS. PT WITH BILATERAL MITTENS ON TO PREVENT FROM PULLING TUBES ENDORSED . BED ON LOWER POSITION AND LOCKED FOR SAFETY. SIDE RAILS X 4 ARE UP FOR SAFETY. I CHECKED THE NGT FOR PLACEMENT I HEARD THE SOUND BUT FAINT. I ASKED AND RN, RVI TO RE CHECK THE NGT PLACEMENT STILL FAINT. NGT HAS 5 ML RESIDUAL. NGT FEEDING AT THE RATE 30 ML / HOUR. WILL CONTINUE TO MONITOR.
[2018-05-06 20:00] VITALS: BP 130/70
--- NOTE | 2018-05-06 20:50 | NUR ---
MS/CONDOMINIUM ASSOCIATION MANAGER; CHARGE NURSE SIMON MADE HER ROUND TO THIS PT. I ASKED HER TO RE CHECK THE NGT PLACEMENT AND SHE SAID OK.
[2018-05-07] MEDS: IPRATROPIUM NEB FS 0.5 MG/2.5 ML AMPUL.NEB NEB SCH ×4 (02:13→19:09)
[2018-05-07] MEDS: ALBUTEROL FS 2.5 MG/3 ML VIAL.NEB NEB SCH ×4 (02:13→19:09)
--- NOTE | 2018-05-07 06:00 | NUR ---
MS/OFFICE AUTOMATION CLERK; SLEPT MOST OF THE TIME. RT DID BREATHING TREATMENTS . LATEST NGT RESIDUAL IS 20 ML .
[2018-05-07 06:16] LABS: BASOPHILS % (AUTO) 0.1 % (0.0-2.0); EOSINOPHILS % (AUTO) 0.1 % (0.0-6.0); HEMATOCRIT 46 % (39-51); HEMOGLOBIN 15.4 g/dL (13.5-17.5); LYMPHOCYTES # (AUTO) 0.8 /CMM (0.8-4.8); LYMPHOCYTES % (AUTO) 4.1 % (20.0-44.0); MEAN CORPUSCULAR HEMOGLOBIN 35 PG (26.0-33.0); MEAN CORPUSCULAR HGB CONC 34 g/dl (31.0-36.0); MEAN CORPUSCULAR VOLUME 103 fL (80-96); MONOCYTES # (AUTO) 1.3 /CMM (0.1-1.30); MONOCYTES % (AUTO) 6.8 % (2.0-12.0); NEUTROPHILS # (AUTO) 17.1 /CMM (1.8-8.9); NEUTROPHILS % (AUTO) 88.9 % (43.0-81.0); PLATELET COUNT (AUTO) 216 /CMM (150-450); RDW COEFFICIENT OF VARIATION 13.2 (11.5-15.0); RED BLOOD CELL COUNT(AUTO) 4.45 MIL/uL (4.5-6.0); WHITE BLOOD COUNT (AUTO) 19.3 K/uL (4.3-11.0)
[2018-05-07 06:27] LABS: CALCIUM, SERUM 9.2 mg/dL (8.5-10.1); CARBON DIOXIDE 21 mmol/L (21-32); CHLORIDE 121 mmol/L (98-107); CREATININE 1.4 mg/dL (0.6-1.3); GLUCOSE 228 mg/dL (74-106); POTASSIUM 3.1 mmol/L (3.5-5.1); SODIUM SERUM 151 mmol/L (136-145); UREA NITROGEN, BLOOD 54 mg/dL (7-18)
--- NOTE | 2018-05-07 06:39 | NUR ---
MS/CLINICAL LABORATORY MEDICAL DIRECTOR; NGT FEEDING , IVF ON PROGRESS. NO COUGHING NOTED. TURNED AND REPOSITIONED. WILL CONTINUE TO MONITOR. WILL ENDORSE TO THE DAY SHIFT NURSE FOR CONTINUITY OF CARE.
[2018-05-07] MEDS: IV NS 0.9% 1,000 ML IV PRN (06:52)
--- NOTE | 2018-05-07 07:10 | NUR ---
RN NOTES PT IS SITTING UP IN BED, AWAKE AND RESTING COMFORTABLY. PT ON 4L O2, RESPIRATIONS ARE EVEN AND UNLABORED. IV ON RFA INTACT AND RUNNING NS @ 75ML/HR. NO SIGNS OF DISTRESS NOTED. SAFETY MEASURES ARE IN PLACE, CALL LIGHT IS IN REACH. WILL CONTINUE TO MONITOR.
[2018-05-07] MEDS: ACETYLCYSTEINE 10% SOLN 400 MG/4 ML VIAL NEB SCH ×3 (07:35→23:50)
[2018-05-07 08:00] VITALS: BP 146/77
[2018-05-07] MEDS: PAROXETINE HCL 20 MG TABLET NG SCH (08:36)
[2018-05-07] MEDS: BENAZEPRIL HCL 10 MG TABLET NG SCH (08:36)
[2018-05-07] MEDS: MEMANTINE HCL 5 MG TABLET NG SCH (08:36)
[2018-05-07] MEDS: LACTOBACILLUS RHAMNOSUS GG 1 EACH CAP.SPRINK NG SCH ×2 (08:36→17:00)
[2018-05-07] MEDS: PANTOPRAZOLE 40 MG/PACK PACK NG SCH (08:36)
[2018-05-07] MEDS: ENOXAPARIN SODIUM 30 MG/0.3 ML DISP.SYRIN SQ SCH (08:37)
[2018-05-07 09:15] LABS: LYMPHOCYTES % (MANUAL) 4 % (16-48); MONOCYTES % (MANUAL) 8 % (0-11.0); NEUTROPHILS % (MANUAL) 88 (42-76)
[2018-05-07] MEDS: POTASSIUM CL. PREMIX PERIPHER. 50 ML IV SCH ×4 (11:37→14:46)
[2018-05-07 16:00] VITALS: BP 142/70
--- NOTE | 2018-05-07 16:00 | NUR ---
RN NOTES UNABLE TO HEAR PLACEMENT OF NG-TUBE. STAT CHEST X-RAY ORDERED TO CHECK PLACEMENT. PER X-RAY FLORIST HELPER, NG-TUBE NOT IN STOMACH. ATTEMPTED TO PLACE NG-TUBE IN R NARE. X-RAY SHOWED PLACEMENT IN R LUNG. NG-TUBE REMOVED. GEAR MILLING MACHINE SET UP OPERATOR MADE AWARE, STATED IT WAS OKAY TO KEEP NG-TUBE OUT AND KEEP PT NPO UNTIL PEG PLACEMENT CAN BE DONE TOMORROW, 05/08.
[2018-05-07] MEDS: DONEPEZIL 5 MG TABLET NG SCH (17:19)
[2018-05-07] MEDS: Potassium Chloride 20 MEQ in IV D5/0.45 NACL 1,000 ML IV SCH (17:21)
[2018-05-07] MEDS: PIPERACILLIN /TAZOBACTAM 2.25 G in IV NS 0.9% 50 ML IV SCH (17:23)
--- NOTE | 2018-05-07 18:41 | NUR ---
RN NOTES PT IS SITTING UP IN BED, SLEEPING COMFORTABLY. PT ON 4L, RESPIRATIONS ARE EVEN AND UNLABORED. IV ON LFA INTACT AND RUNNING D5 1/2NS +20MEQ KCL @ 80ML/HR. NO SIGNS OF DISTRESS NOTED. PT KEPT CLEAN AND DRY THROUGHOUT SHIFT. NO SIGNS OF DISTRESS NOTED. SAFETY MEASURES ARE IN PLACE, CALL LIGHT IS IN REACH. WILL ENDORSE TO ROD PULLER AND COILER RN FOR CONTINUITY OF CARE.
--- NOTE | 2018-05-07 18:52 | NUR ---
RN NOTES MD MADE AWARE OF REMOVAL OF NG-TUBE. MD AGREES OKAY TO BE NPO WITHOUT NG-TUBE FOR TONIGHT, PLAN TO SCHEDULE PEG PLACEMENT TOMORROW.
--- NOTE | 2018-05-07 19:25 | NUR ---
MS/COLLECTION SYSTEMS WORKER; RECEIVED PT IN BED AWAKE WITH BREATHING TREATMENT ON GOING BY THE RT. WITH BILATERAL MITTENS ON ORDERED TO PREVENT FROM PULLING TUBES. IVF ON PROGRESS OF D5 1/2 NS WITH KCL 20 MEQ AT 80 ML / HOUR. PT ON NPO . BED ON LOWER POSITION AND LOCKED FOR SAFETY AND LOCKED FOR SAFETY. SIDE RAILS ARE UP FOR SAFETY. CALL LIGHT WITHIN REACH. WILL CONTINUE TO MONITOR.
[2018-05-07 20:00] VITALS: BP 142/74
[2018-05-08] MEDS: PIPERACILLIN /TAZOBACTAM 2.25 G in IV NS 0.9% 50 ML IV SCH ×4 (00:03→17:33)
--- NOTE | 2018-05-08 01:35 | NUR ---
MS/LEAD RAMP SERVICE MAN; IVF D5 1/2 NS WITH KCL 20 MEQ NOT INFUSED DUE THE IVF CURRENT STILL MORE.
[2018-05-08] MEDS: Potassium Chloride 20 MEQ in IV D5/0.45 NACL 1,000 ML IV SCH (01:38)
[2018-05-08] MEDS: IPRATROPIUM NEB FS 0.5 MG/2.5 ML AMPUL.NEB NEB SCH ×4 (02:16→19:47)
[2018-05-08] MEDS: ALBUTEROL FS 2.5 MG/3 ML VIAL.NEB NEB SCH ×4 (02:16→19:47)
--- NOTE | 2018-05-08 06:43 | NUR ---
MS/MEDICAL SCRIBE; SLEPT FAIRLY. AM CARE DONE BY THE RUBBER INSULATOR. TURNED AND REPOSITIONED FOR COMFORT. REMAINED ON NPO. IVF ON PROGRESS. WILL ENDORSE TO THE DAY SHIFT FOR CONTINUITY OF CARE.
[2018-05-08 07:18] LABS: BASOPHILS % (AUTO) 0.2 % (0.0-2.0); EOSINOPHILS % (AUTO) 0.2 % (0.0-6.0); HEMATOCRIT 46 % (39-51); HEMOGLOBIN 15.4 g/dL (13.5-17.5); LYMPHOCYTES # (AUTO) 1.3 /CMM (0.8-4.8); LYMPHOCYTES % (AUTO) 6.9 % (20.0-44.0); MEAN CORPUSCULAR HEMOGLOBIN 35 PG (26.0-33.0); MEAN CORPUSCULAR HGB CONC 34 g/dl (31.0-36.0); MEAN CORPUSCULAR VOLUME 103 fL (80-96); MONOCYTES # (AUTO) 1.8 /CMM (0.1-1.30); MONOCYTES % (AUTO) 9.9 % (2.0-12.0); NEUTROPHILS # (AUTO) 15.2 /CMM (1.8-8.9); NEUTROPHILS % (AUTO) 82.8 % (43.0-81.0); PLATELET COUNT (AUTO) 213 /CMM (150-450); RDW COEFFICIENT OF VARIATION 13.6 (11.5-15.0); RED BLOOD CELL COUNT(AUTO) 4.42 MIL/uL (4.5-6.0); WHITE BLOOD COUNT (AUTO) 18.3 K/uL (4.3-11.0)
[2018-05-08] MEDS: ACETYLCYSTEINE 10% SOLN 400 MG/4 ML VIAL NEB SCH ×2 (07:26→14:26)
--- NOTE | 2018-05-08 07:30 | NUR ---
MS RN NOTES RECEIVED PT IN BED WITH HOB ELEVATED, SLEEPING COMFORTABLY. PT IS EASILY AROUSABLE, A/O X1. RESPIRATIONS ARE EVEN AND UNLABORED AT THIS TIME, CURRENTLY RECEIVING BREATHING TXS AND TOLERATING WELL. IV SITE INTACT, DRESSING KEPT CLEAN AND DRY. IV FLUIDS ARE RUNNING AND TOLERATING WELL. HAND MITTENS ARE ON FOR CONSTANTLY TRYING TO PULL OUT TUBINGS. SAFETY MEASURES ARE IN PLACE. BED IS IN ITS LOCKED AND LOWEST POSITION. WILL CONTINUE TO MONITOR THROUGHOUT SHIFT FOR CONTINUITY OF ARE.
[2018-05-08 07:37] LABS: CALCIUM, SERUM 9.1 mg/dL (8.5-10.1); CARBON DIOXIDE 22 mmol/L (21-32); CREATININE 1.4 mg/dL (0.6-1.3); GLUCOSE 174 mg/dL (74-106); MAGNESIUM 2.3 mg/dL (1.8-2.4); POTASSIUM 3.4 mmol/L (3.5-5.1); UREA NITROGEN, BLOOD 43 mg/dL (7-18)
[2018-05-08 07:42] LABS: CHLORIDE 126 mmol/L (98-107); SODIUM SERUM 158 mmol/L (136-145)
[2018-05-08 08:00] VITALS: BP 147/58
[2018-05-08 08:15] VITALS: BP 147/48
--- NOTE | 2018-05-08 08:15 | NUR ---
MS RIVERA NOTES PT SEEN AND EXAMINED BY DR. BORRERO W/ ORDERS NOTED AND CARRIED OUT. Addendum: 05/08/18 at 1730 by SONYA TORRES RN DR. BORRERO MADE AWARE OF FEVER OF 100.3. PROVIDED COOLING MEASURES.
--- NOTE | 2018-05-08 08:25 | NUR ---
MS RN NOTES CALLED DR. BORRERO RE: CHEST XRAY RESULTS, STILL WAITING A CALL BACK.
[2018-05-08] MEDS: PAROXETINE HCL 20 MG TABLET NG SCH (09:00)
[2018-05-08] MEDS: LACTOBACILLUS RHAMNOSUS GG 1 EACH CAP.SPRINK NG SCH ×2 (09:00→17:00)
[2018-05-08] MEDS: ENOXAPARIN SODIUM 30 MG/0.3 ML DISP.SYRIN SQ SCH (09:00)
[2018-05-08] MEDS: BENAZEPRIL HCL 10 MG TABLET NG SCH (09:00)
[2018-05-08] MEDS: PANTOPRAZOLE 40 MG/PACK PACK NG SCH (09:00)
[2018-05-08] MEDS: MEMANTINE HCL 5 MG TABLET NG SCH (09:00)
--- NOTE | 2018-05-08 10:10 | NUR ---
MS RN NOTES PT IS NPO, NO MEDICATIONS GIVEN. WILL CONTINUE TO MONITOR THROUGHOUT SHIFT.
[2018-05-08] MEDS: Potassium Chloride 20 MEQ in IV D5W 1,000 ML IV SCH ×2 (10:14→18:42)
--- NOTE | 2018-05-08 11:17 | NUR ---
MS RN NOTES PT'S TEMP WENT DOWN TO 98.9. WILL CONTINUE TO MONITOR THROUGHOUT SHIFT.
--- NOTE | 2018-05-08 11:27 | NUR ---
MS RN NOTES PAGED DR. BORRERO TO RELAY CHEST XRAY RESULTS, STILL WAITING A CALL BACK.
--- NOTE | 2018-05-08 11:40 | NUR ---
MS RN NOTES CALLED DR. HESS TO FOLLOW UP ON PEG PLACEMENT, LEFT MESSAGE AND STILL WAITING A CALL BACK.
--- NOTE | 2018-05-08 12:03 | NUR ---
MS RN NOTES RECEIVED A CALL BACK FROM DR. BORRERO WITH ORDERS FOR CT OF ABDOMEN AND PELVIS WITHOUT CONTRAST. LOVENOX DOSE ON HOLD PER DR. BORRERO. NOTED AND CARRIED OUT. ORDERS READ BACK AND VERIFIED.
--- NOTE | 2018-05-08 13:02 | NUR ---
MS RN NOTES PAGED DR. BORRERO TO RELAY CT ABDOMEN AND PELVIS WO CONTRAST RESULTS, STILL WAITING A CALL BACK.
--- NOTE | 2018-05-08 15:41 | NUR ---
MS RN NOTES RELAYED CT ABD/PELVIS RESULTS TO DR. BORRERO W/ NO NEW ORDERS AT THIS TIME. WILL CONTINUE TO MONITOR THE PT.
--- NOTE | 2018-05-08 16:00 | NUR ---
MS RN NOTES PT SEEN AND EXAMINED BY DR. HESS. PER DR. HESS, PEG PLACEMENT POSSIBLY ON FRIDAY.
[2018-05-08 16:41] VITALS: BP 145/89
--- NOTE | 2018-05-08 17:55 | NUR ---
MS RN NOTES PT TEMP 98.2. WILL CONTINUE TO MONITOR.
[2018-05-08] MEDS: DONEPEZIL 5 MG TABLET NG SCH (18:00)
--- NOTE | 2018-05-08 18:37 | NUR ---
MS RN CLOSING NOTES ALL NEEDS MET AND ANTICIPATED. PT REMAINS A/O X1, RESPIRATIONS ARE EVEN AND UNLABORED, NOT IN ANY ACUTE DISTRESS NOTED. PT TOLERATING O2 @4L/MIN VIA NC AND BREATHING TXS SCHEDULED. IV SITE INTACT, NO INFILTRATION NOTED. DRESSING KEPT CLEAN AND DRY. PER DR. BORRERO TO HOLD OFF THE NGT AND WAIT FOR PEG PLACEMENT AND CONTINUE IV FLUIDS. SAFETY MEASURES ARE IN PLACE. WILL CALL LIGHT IS LEFT WITHIN REACH. REPOSITIONED PER PROTOCOL. WILL ENDORSE TO NEXT SHIFT FOR CONTINUITY OF CARE.
--- NOTE | 2018-05-08 19:20 | NUR ---
MS/RN NOTES RECEIVED PT. LYING IN BED. PT. IS AWAKE, ALERT AND ORIENTED TO SELF. BREATHING EVEN AND UNLABORED ON 4LPM O2 VIA NC. NO SOB, RESPIRATORY DISTRESS OR S/S OF PAIN NOTED AT THIS TIME. PT. WITH LEFT FOREARM #22 PERIPHERAL IV PRESENT, PATENT AND INTACT. PER DAYSHIFT NURSE PT. REMAINS NPO AT THIS TIME WITH ASPIRATION PRECAUTIONS. PER DAYSHIFT NURSE PT. IS PENDING PEG PLACEMENT FRIDAY. BED LOCKED AND IN LOWEST POSITION, SIDE RAILS UP X3, BED ALARM ON, WILL CONTINUE TO MONITOR.
[2018-05-08 20:00] VITALS: BP 130/77
[2018-05-09] MEDS: ALBUTEROL FS 2.5 MG/3 ML VIAL.NEB NEB SCH ×4 (00:06→20:03)
[2018-05-09] MEDS: ACETYLCYSTEINE 10% SOLN 400 MG/4 ML VIAL NEB SCH ×4 (00:06→23:11)
[2018-05-09] MEDS: IPRATROPIUM NEB FS 0.5 MG/2.5 ML AMPUL.NEB NEB SCH ×4 (00:06→20:03)
[2018-05-09] MEDS: PIPERACILLIN /TAZOBACTAM 2.25 G in IV NS 0.9% 50 ML IV SCH ×4 (00:12→17:19)
[2018-05-09] MEDS: Potassium Chloride 20 MEQ in IV D5W 1,000 ML IV SCH ×2 (04:57→14:26)
--- NOTE | 2018-05-09 06:10 | NUR ---
MS/RN NOTES PT. IS LYING IN BED RESTING. BREATHING EVEN AND UNLABORED ON 4LPM O2 VIA NC. NO SOB, RESPIRATORY DISTRESS OR S/S OF PAIN NOTED AT THIS TIME AND THROUGHOUT SHIFT. PT. WITH LEFT FOREARM #22 PERIPHERAL IV PRESENT, PATENT AND INTACT. PT. REMAINS NPO AT THIS TIME WITH ASPIRATION PRECAUTIONS IMPLEMENTED AND IN PLACE. PT. IS PENDING PEG PLACEMENT Friday05/11/18. ALL PT. NEEDS MET. PT. OFFLOADED, TURNED AND REPOSITIONED Q2H AND NEEDED. BED LOCKED AND IN LOWEST POSITION, SIDE RAILS UP X3, BED ALARM ON, WILL ENDORSE TO DAYSHIFT NURSE FOR CONTINUITY OF CARE.
[2018-05-09 07:02] LABS: BASOPHILS % (AUTO) 0.1 % (0.0-2.0); EOSINOPHILS % (AUTO) 0.5 % (0.0-6.0); HEMATOCRIT 44 % (39-51); HEMOGLOBIN 14.7 g/dL (13.5-17.5); LYMPHOCYTES # (AUTO) 1.4 /CMM (0.8-4.8); LYMPHOCYTES % (AUTO) 9.9 % (20.0-44.0); MEAN CORPUSCULAR HEMOGLOBIN 35 PG (26.0-33.0); MEAN CORPUSCULAR HGB CONC 33 g/dl (31.0-36.0); MEAN CORPUSCULAR VOLUME 103 fL (80-96); MONOCYTES # (AUTO) 0.9 /CMM (0.1-1.30); MONOCYTES % (AUTO) 6.2 % (2.0-12.0); NEUTROPHILS # (AUTO) 11.5 /CMM (1.8-8.9); NEUTROPHILS % (AUTO) 83.3 % (43.0-81.0); PLATELET COUNT (AUTO) 171 /CMM (150-450); RDW COEFFICIENT OF VARIATION 13.5 (11.5-15.0); RED BLOOD CELL COUNT(AUTO) 4.27 MIL/uL (4.5-6.0); WHITE BLOOD COUNT (AUTO) 13.8 K/uL (4.3-11.0)
[2018-05-09 07:13] LABS: CARBON DIOXIDE 22 mmol/L (21-32); CHLORIDE 124 mmol/L (98-107); CREATININE 1.2 mg/dL (0.6-1.3); GLUCOSE 237 mg/dL (74-106); MAGNESIUM 2.2 mg/dL (1.8-2.4); POTASSIUM 3.3 mmol/L (3.5-5.1); UREA NITROGEN, BLOOD 33 mg/dL (7-18)
[2018-05-09 07:17] LABS: SODIUM SERUM 156 mmol/L (136-145)
--- NOTE | 2018-05-09 07:30 | NUR ---
MS RN OPENING NOTES RECEIVED PATIENT IN STABLE CONDITION RESTING IN BED. IN NO APPARENT DISTRESS. BEDSIDE RAILS ARE UPX2. BED IS LOCKED AND LOWERED. CALL LIGHT IS WITHIN REACH. IV LINE IS INTACT AND PATENT. WILL CONTINUE TO MONITOR.
[2018-05-09 08:00] VITALS: BP 142/76
[2018-05-09] MEDS: LACTOBACILLUS RHAMNOSUS GG 1 EACH CAP.SPRINK NG SCH ×2 (08:22→16:04)
[2018-05-09] MEDS: BENAZEPRIL HCL 10 MG TABLET NG SCH (08:22)
[2018-05-09] MEDS: MEMANTINE HCL 5 MG TABLET NG SCH (08:23)
[2018-05-09] MEDS: PANTOPRAZOLE 40 MG/PACK PACK NG SCH (08:23)
[2018-05-09] MEDS: PAROXETINE HCL 20 MG TABLET NG SCH (08:23)
--- NOTE | 2018-05-09 08:25 | NUR ---
NO ORAL MEDICATIONS ADMINISTERED. PATIENT IS NPO. AWAITING SURGERY PEG PLACEMENT SCHEDULED FOR FRIDAY AND PATIENT FAILED SWALLOW EVAL. WILL CONTINUE TO MONITOR.
[2018-05-09] MEDS: ENOXAPARIN SODIUM 30 MG/0.3 ML DISP.SYRIN SQ SCH (08:33)
[2018-05-09] MEDS: POTASSIUM CL. PREMIX PERIPHER. 50 ML IV SCH ×2 (10:58→12:24)
--- NOTE | 2018-05-09 12:37 | NUR ---
POTASSIUM 10MEQ ADMINISTERED X2.
--- NOTE | 2018-05-09 14:20 | NUR ---
PATIENT IS NONCOMPLIANT WITH MEDICAL STAFF. PATIENT STATES HE WANTS TO GO OUTSIDE TO GET SOME FRESH AIR BUT HE IS VERY WEAK. PATIENT TRIED TO LEAVE AGAINST MEDICAL ADVICE. Addendum: 05/09/18 at 1521 by LOU MANJARREZ RN CONVINCED PATIENT TO STAY IN HIS ROOM. WILL CONTINUE TO MONITOR. Addendum: 05/09/18 at 1852 by LOU MANJARREZ RN DISREGARD PREVIOUS NOTE. CHARTED ON WRONG PATIENT.
[2018-05-09 16:00] VITALS: BP 137/77
[2018-05-09] MEDS: DONEPEZIL 5 MG TABLET NG SCH (17:10)
--- NOTE | 2018-05-09 18:52 | NUR ---
MS RN CLOSING NOTES PATIENT IS IN STABLE CONDITION. IN NO APPARENT DISTRESS. BEDSIDE RAILS ARE UPX2. BED IS LOCKED AND LOWERED. CALL LIGHT IS WITHIN REACH. IV LINE IS INTACT AND PATENT. WILL ENDORSE CARE TO PATTERNMAKER METAL BENCH NURSE FOR ROSEANNE.
--- NOTE | 2018-05-09 19:45 | NUR ---
RN OPENING NOTES RECEIVED REPORT FROM DAYSHIFT RN LOU. FOUND Pt RESTING IN BED. Pt IS NONVERBAL, NOT RESPONSIVE WHEN TALKED TO, BUT IS ABLE TO MOVE ARMS. IV ACCESS ON LFA #22G, IVF KCL 20MEQ D5W @100ML/HR. SAFETY MEASURES IN PLACE. BED LOW, LOCKED, HOB ELEVATED, SIDE RAILS UP, CALL LIGHT AND BEDSIDE TABLE WITHIN REACH. WILL CONTINUE TO MONITOR Pt THROUGHOUT THE NIGHT FOR SAFETY.
[2018-05-09 20:00] VITALS: BP 143/87
[2018-05-10] MEDS: PIPERACILLIN /TAZOBACTAM 2.25 G in IV NS 0.9% 50 ML IV SCH ×5 (01:05→23:06)
[2018-05-10] MEDS: Potassium Chloride 20 MEQ in IV D5W 1,000 ML IV SCH ×4 (01:12→23:06)
[2018-05-10] MEDS: ALBUTEROL FS 2.5 MG/3 ML VIAL.NEB NEB SCH ×4 (01:34→19:52)
[2018-05-10] MEDS: IPRATROPIUM NEB FS 0.5 MG/2.5 ML AMPUL.NEB NEB SCH ×4 (01:34→19:52)
[2018-05-10 06:10] LABS: EOSINOPHILS % (AUTO) 0.1 % (0.0-6.0); HEMATOCRIT 44 % (39-51); HEMOGLOBIN 14.8 g/dL (13.5-17.5); LYMPHOCYTES % (AUTO) 5.1 % (20.0-44.0); MEAN CORPUSCULAR HEMOGLOBIN 35 PG (26.0-33.0); MEAN CORPUSCULAR HGB CONC 33 g/dl (31.0-36.0); MEAN CORPUSCULAR VOLUME 104 fL (80-96); MONOCYTES # (AUTO) 1.6 /CMM (0.1-1.30); NEUTROPHILS # (AUTO) 16.9 /CMM (1.8-8.9); NEUTROPHILS % (AUTO) 86.8 % (43.0-81.0); PLATELET COUNT (AUTO) 186 /CMM (150-450); RDW COEFFICIENT OF VARIATION 13.7 (11.5-15.0); RED BLOOD CELL COUNT(AUTO) 4.29 MIL/uL (4.5-6.0); WHITE BLOOD COUNT (AUTO) 19.5 K/uL (4.3-11.0)
[2018-05-10 06:27] LABS: CALCIUM, SERUM 9.2 mg/dL (8.5-10.1); CARBON DIOXIDE 23 mmol/L (21-32); CHLORIDE 124 mmol/L (98-107); CREATININE 1.2 mg/dL (0.6-1.3); GLUCOSE 210 mg/dL (74-106); MAGNESIUM 2.3 mg/dL (1.8-2.4); POTASSIUM 4.2 mmol/L (3.5-5.1); UREA NITROGEN, BLOOD 33 mg/dL (7-18)
[2018-05-10 06:47] LABS: SODIUM SERUM 157 mmol/L (136-145)
--- NOTE | 2018-05-10 06:50 | NUR ---
RN CLOSING NOTES NO SIGNIFICANT CHANGES IN Pt's CONDITION. ALL NEEDS MET AND ATTENDED TO. ALL ORDERED MEDS GIVEN. SAFETY MEASURES IN PLACE. BED LOW, LOCKED, HOB ELEVATED, SIDE RAILS UP. WILL ENDORSE TO DAYSHIFT RN FOR Pt's ROSEANNE.
--- NOTE | 2018-05-10 07:30 | NUR ---
MS RN OPENING NOTES PATIENT IS TACHYPNEIC. BEDSIDE RAILS ARE UPX2. BED IS LOCKED AND LOWERED. CALL LIGHT IS WITHIN REACH. IV LINE IS INTACT AND PATENT. WILL CONTINUE TO MONITOR.
[2018-05-10] MEDS: ACETYLCYSTEINE 10% SOLN 400 MG/4 ML VIAL NEB SCH ×3 (07:36→23:30)
[2018-05-10 08:00] VITALS: BP 155/76
[2018-05-10] MEDS: LACTOBACILLUS RHAMNOSUS GG 1 EACH CAP.SPRINK NG SCH ×2 (08:11→16:50)
[2018-05-10] MEDS: PAROXETINE HCL 20 MG TABLET NG SCH (08:13)
[2018-05-10] MEDS: BENAZEPRIL HCL 10 MG TABLET NG SCH (08:13)
[2018-05-10] MEDS: MEMANTINE HCL 5 MG TABLET NG SCH (08:13)
[2018-05-10] MEDS: PANTOPRAZOLE 40 MG/PACK PACK NG SCH (08:14)
[2018-05-10] MEDS: ENOXAPARIN SODIUM 30 MG/0.3 ML DISP.SYRIN SQ SCH (08:47)
--- NOTE | 2018-05-10 09:24 | NUR ---
NOTIFIED DR. BORRERO ABOUT PATIENT BEING TACHYPNEIC AND HIGH SODIUM LEVEL OF 157. AWAITING ORDERS. Addendum: 05/10/18 at 0936 by LOU MANJARREZ RN DR. BORRERO ORDERED CHEST X RAY STAT AND LASIX 20MG IVP. ORDERS CARRIED OUT.
[2018-05-10] MEDS ORDERED: FUROSEMIDE 20 MG/2 ML VIAL IV ONE (09:30)
[2018-05-10 16:00] VITALS: BP 114/68
[2018-05-10] MEDS: DONEPEZIL 5 MG TABLET NG SCH (17:03)
--- NOTE | 2018-05-10 18:20 | NUR ---
MS RN CLOSING NOTES PATIENT IS IN STABLE CONDITION. IN NO APPARENT DISTRESS. BEDSIDE RAILS ARE UPX2. BED IS LOCKED AND LOWERED. CALL LIGHT IS WITHIN REACH. IV LINE IS INTACT AND PATENT. WILL ENDORSE CARE TO CDL DRIVER NURSE FOR ROSEANNE.
--- NOTE | 2018-05-10 19:40 | NUR ---
RN INITIAL NOTES: RECEIVED PT IN BED, PER REPORT PT IS SLEEPY DURING THE DAY, OPEN EYES ONLY WITH PAINFUL STIMULI. PER DAY RN DR BORRERO IS AWARE, PT IS ALSO TACHYPNEIC DUYRING THE DAY UNTIL NOW, AWARE. PT ON SIMPLE MASK 8L, SPO2 92-93%. BLE OFFLOADED. IV ACCESS PATENT AND FLUSHING WELL, INFUSING WITH D5W 1L WITH 20 MEQ KCL AT 50 ML/HR TO PREVENT FLUID OVERLOAD PT WAS GIVEN LASIX DURING THE DAY DUE TO TACHYPNEA. SAFETY PRECAUTIONS FOR FALL INITIATED, CALL LIGHT IN REACH, WILL CONTINUE MONITORING PT.
[2018-05-10 20:00] VITALS: BP 142/75
--- NOTE | 2018-05-10 20:04 | NUR ---
RN NOTES: RECEIVED CALL FROM RJ GIMENEZ, STATED HE'S THE PT'S SON, AND CLAIMED HE'S ALSO AN MD, ASKING ABOUT PT'S CONDITION, AND WHY THERE'S A NEED FOR PEG PLACEMENT, AND WHO WILL PERFORM THE PROCEDURE. INFORMED PT'S SON THAT PT FAILED 2 SWALLOW EVAL MEANING IT IS NOT SAFE FOR THE PT TO EAT BY MOUTH HE IS HIGH RISK FOR ASPIRATION OR CHOKING, AND A GI WAS CONSULTED, PT'S SON ASKING ABOUT THE NUMBER OF THE GI DOCTOR, INFORMED THAT WE ARE NOT ALLOWED TO GIVE THE DIRECT CP NUMBER OF THE MD BUT ONLY OFFICE NUMBER, GIVEN THE OFFICE NUMBER [phone].
--- NOTE | 2018-05-10 20:10 | NUR ---
RN NOTES: SUCTION SET UP IN PLACED, NOTED PT'S ABDOMEN SOFT TO TOUCH, ACTIVE BOWEL SOUND HEARD UPON AUSCULTATION OF THE ABDOMEN, NOTED TO BE DISTENDED BUT UNSURE IF ITS BASELINE, PT VOIDED USING DIAPER, CT ABDOMEN DONE, MD AWARE OF RESULT,
[2018-05-10 20:40] VITALS: BP 124/77
[2018-05-10] MEDS: Z GUARD REMEDY 2 OZ OINT TP PRN (20:44)
[2018-05-10] MEDS: ACETAMINOPHEN 650 MG/SUPP.RECT RC PRN (20:44)
--- NOTE | 2018-05-10 20:44 | NUR ---
RN NOTES: PT NOTED TO HAVE LOW GRADE FEVER 99.8, PT IS TACHYPNEIC, PT NOTED TO HAVE FACIAL GRIMACE, APPEARS TO BE IN PAIN, PT IS NON VERBAL, USED FLACC SCALE OBTAINED A SCORE OF 3/10, PRN TYLENOL SUPPOSITORY ADMINISTERED TO THE PT AT THIS TIME FOR FEVER AND MILD PAIN, ALSO TOOK PICTURE OF PT'S SACRAL AREA APPEARS TO BE POSSIBLE DTI, PERINEUM AND SCROTAL REDNESS, LEFT HIP REDNESS NON BLANCHABLE, LEFT KNEE BLANCHABLE REDNESS AND SCAR/ABRASION, Z GUARD AND MEPILEX APPLIED FOR SACRAL AREA, Z GUARD APPLIED ON PERINEUM AND SCROTUM, MEPILEX FOR LEFT HIP AND KNEE, ALSO APPLIED MEPILEX ON FACIAL TO EAR AREA TO AVOID REDNESS OR EXCORIATION FROM MASK TIE. TURNED AND REPOSITIONED PT AT THIS TIME WITH COREY AGRAWAL
--- NOTE | 2018-05-10 20:50 | NUR ---
RN NOTES: ICE PACK APPLIED PT'S ROOM REALLY HOT AND AC ALREADY ALL THE WAY TO LOWEST TEMP, FAN ON, BUT STILL ROOM IS HOT, CALLED ENGINEERING TO FIX THE AC
--- NOTE | 2018-05-10 21:24 | NUR ---
ACCU CHECK: DECIDED TO CHECK PT'S BLOOD SUGAR AND RESULT OBTAINED IS 219, PT OPEN EYES WHEN INFLICTED WITH PAINFUL STIMULI SUCH NAIL RUBBING AND STERNAL RUB
--- NOTE | 2018-05-10 21:36 | NUR ---
RN NOTES: CONTACTED DR GISSELL NEWMAN TO INFORM ABOUT PT'S CONDITION/UPDATE OF PT'S CONDITION, AWAITING FOR CALL BACK
--- NOTE | 2018-05-10 21:37 | NUR ---
RN NOTES: [employer] CODE ENFORCEMENT OFFICER JENNIFER MADE AWARE OF PT'S COMDITION/STATUS, AND CALLING OF
--- NOTE | 2018-05-10 21:38 | NUR ---
NON ADMIN OF IVF SCHEDULED: THERE STILL 400 ML OF D5W WITH 20 MEQ KCL BEING ADMINISTERED AT THIS TIME, WILL ADMIN THE SCHEDULED FLUID ONCE BAG IS COMPLETED
--- NOTE | 2018-05-10 23:07 | NUR ---
RN NOTES CONTINUATION FROM PREVIOUS NOTES: COMPLETE SET OF IV TUBING WAS REPLACED.
--- NOTE | 2018-05-10 23:07 | NUR ---
RN NOTES: ABOVE IVF CONSUMED/FINISHED, NEW BAG OF D5W WITH 20 MEQ KCL ADMINISTERED AT THIS TIME. ALSO RECHECK PT'S VS, SEE VS LOG FOR DETAILS, PT IS ALSO AWAKE, OPEN EYES SPONTANEOUSLY, BUT STILL NOT ABLE TO ANSWER QUESTION, REMAINS NON VERBAL, CASH SALES AUDIT CLERK MADE AWARE
[2018-05-10 23:16] VITALS: BP 120/69
--- NOTE | 2018-05-11 | NUR ---
RN NOTES: PT AWAKE, OPEN EYES SPONTANEOUSLY, ASSISTED LAWN AND GARDEN TECHNICIAN IN PROVIDING BED BATH TO THE PT, ORAL CARE PROVIDED TOO
--- NOTE | 2018-05-11 00:10 | NUR ---
RN NOTES: CONNECTED PT TO CONTINUOUS PULSE OXIMETRY, ON 5L SIMPLE MASK SPO2 94%, WILL TRY TO WEAN PT FROM OXYGEN, PER REPORT GI MD WOULD LIKE PT TO TOLERATE ROOM AIR PRIOR TO GOING TO PROCEDURE
[2018-05-11] MEDS: IPRATROPIUM NEB FS 0.5 MG/2.5 ML AMPUL.NEB NEB SCH ×4 (01:36→19:53)
[2018-05-11] MEDS: ALBUTEROL FS 2.5 MG/3 ML VIAL.NEB NEB SCH ×4 (01:36→19:54)
--- NOTE | 2018-05-11 02:58 | NUR ---
RN NOTES: NOTED CONSENT FOR PEG WAS SIGNED BY 2 RN AND 2 MD ON 05/07/18,CONSENT FOR BLOOD TRANSFUSION AND ANESTHESIA WAS OBTAINED FROM TELEPHONE CONSENT FROM LAKSHMI HERNANDEZ'S SON ON 05/10/18 BY MIGUEL BLAKE COSIGNED BY WET PROCESS HEAD MILLERJAQUAN OLIVO
--- NOTE | 2018-05-11 04:19 | NUR ---
RN NOTES: PLACED A NEW SUCTION SET UP FOR THE PT, PT MORE AWAKE, ABLE TO FOLLOW COMMAND SUCH OPENING HIS MOUTH TO SUCTION ORALLY, CLOSE HIS MOUTH,
[2018-05-11] MEDS: PIPERACILLIN /TAZOBACTAM 2.25 G in IV NS 0.9% 50 ML IV SCH ×3 (05:04→17:35)
[2018-05-11 06:00] VITALS: BP 128/55
--- NOTE | 2018-05-11 06:46 | NUR ---
RN CLOSING NOTES: PT IN BED, MORE AWAKE, MUMBLED WORDS, DIFFICULT TO UNDERSTAND. REMAINS ON 5L MASK, SPO2 95%, ON RA PT ONLY 90% SPO2. . SUCTION SET UP REMAINS IN PLACED. IV ACCESS ON LEFT FA REMAINS PATENT AND FLUSHING WELL, INFUSING WITH D5W +20MEQ KCL AT 100ML/HR. BLE KEPT OFFLOADED. REMAINS NPO. FOR PEG PLACEMENT TODAY, CONSENT SECURED, CHECKLIST COMPLETED, VS REMAINS STABLE, NEEDS ATTENDED. APPEARS CALM AND COMFORTABLE, NO FACIAL GRIMACE NOTED. SAFETY PRECAUTIONS FOR FALL REMAINS ENGAGED, SITTER AT BEDSIDE, WILL ENDORSE TO DAY RN FOR ROSEANNE.
[2018-05-11 07:03] LABS: BASOPHILS % (AUTO) 0.2 % (0.0-2.0); EOSINOPHILS % (AUTO) 0.3 % (0.0-6.0); HEMATOCRIT 44 % (39-51); HEMOGLOBIN 14.5 g/dL (13.5-17.5); LYMPHOCYTES # (AUTO) 1.2 /CMM (0.8-4.8); LYMPHOCYTES % (AUTO) 7.6 % (20.0-44.0); MEAN CORPUSCULAR HEMOGLOBIN 35 PG (26.0-33.0); MEAN CORPUSCULAR HGB CONC 33 g/dl (31.0-36.0); MEAN CORPUSCULAR VOLUME 104 fL (80-96); MONOCYTES # (AUTO) 1.4 /CMM (0.1-1.30); MONOCYTES % (AUTO) 8.5 % (2.0-12.0); NEUTROPHILS # (AUTO) 13.4 /CMM (1.8-8.9); NEUTROPHILS % (AUTO) 83.4 % (43.0-81.0); PLATELET COUNT (AUTO) 177 /CMM (150-450); RDW COEFFICIENT OF VARIATION 13.5 (11.5-15.0); WHITE BLOOD COUNT (AUTO) 16.1 K/uL (4.3-11.0)
[2018-05-11 07:09] LABS: CARBON DIOXIDE 24 mmol/L (21-32); CHLORIDE 122 mmol/L (98-107); CREATININE 1.3 mg/dL (0.6-1.3); GLUCOSE 241 mg/dL (74-106); MAGNESIUM 2.3 mg/dL (1.8-2.4); POTASSIUM 4.1 mmol/L (3.5-5.1); SODIUM SERUM 155 mmol/L (136-145); UREA NITROGEN, BLOOD 38 mg/dL (7-18)
[2018-05-11 07:13] LABS: INR 1.26 (0.87-1.13)
[2018-05-11 08:00] VITALS: BP 134/80
[2018-05-11] MEDS: ACETYLCYSTEINE 10% SOLN 400 MG/4 ML VIAL NEB SCH ×2 (08:06→15:25)
[2018-05-11] MEDS: MEMANTINE HCL 5 MG TABLET NG SCH (08:37)
[2018-05-11] MEDS: PAROXETINE HCL 20 MG TABLET NG SCH (08:37)
[2018-05-11] MEDS: LACTOBACILLUS RHAMNOSUS GG 1 EACH CAP.SPRINK NG SCH ×2 (08:37→16:46)
[2018-05-11] MEDS: BENAZEPRIL HCL 10 MG TABLET NG SCH (08:37)
[2018-05-11] MEDS: PANTOPRAZOLE 40 MG/PACK PACK NG SCH (08:38)
[2018-05-11] MEDS: Potassium Chloride 20 MEQ in IV D5W 1,000 ML IV SCH ×2 (08:39→18:27)
[2018-05-11] MEDS: ENOXAPARIN SODIUM 30 MG/0.3 ML DISP.SYRIN SQ SCH (08:41)
--- NOTE | 2018-05-11 08:49 | NUR ---
MS RN NOTES PATIENT IN BED, RESPONSIVE, SPEECH UNCLEAR, GARBLED. ON OXYGEN 5L VIA SIMPLE MASK WITH NO SOB. IVC IN LFA WITH IVF D5W + KCL 20meq INFUSING AT 100ML/HR, 600ML REMAINING FROM THE 1L BAG UPON INITIAL ASSESSMENT. CHEST CONGESTION NOTED, BREATHING TREATMENT VIA NEB. BY RT. SUCTION PRN. MAINTAINED NPO ORDERED,CALL LIGHT WITHIN REACH. WILL CONT TO MONITOR.
[2018-05-11] MEDS: ACETAMINOPHEN 650 MG/SUPP.RECT RC PRN (10:44)
[2018-05-11 16:00] VITALS: BP 128/62
[2018-05-11] MEDS: DONEPEZIL 5 MG TABLET NG SCH (17:38)
--- NOTE | 2018-05-11 18:36 | NUR ---
MS RN CLOSING NOTES PATIENT IN BED, SLEEPING INTERMITTENTLY. APPEARS WEAK, EYES OPEN, SPEECH GARBLED. BREATHING TREATMENT ATC VIA NEB BY RT, MAINTAINED OXYGEN AT 6L VIA SIMPLE MASK, HOB ELEVATED AT ALL TIMES. STILL NPO, CONTINUE ON IVF. PLAN PEG PLACEMENT WAS POSTPONED TODAY UNTIL PATIENT IS CLINICALLY IMPROVED AND MEDICALLY OPTIMIZED PER DR. HESS/GI. FAMILY WAS NOTIFIED, DR. HESS SPOKE TO RJ(PATIENTS BROTHER). WILL ENDORSE TO ONCOMING RN.
--- NOTE | 2018-05-11 19:34 | NUR ---
MS RN NOTES Report received. Patient received in bed, sleeping intermittently, on continuous oxygen via mask @6lpm. HOB elevated with bilateral lower extrimities off-loaded. Repositioned patient. IVF @100ml/hr running on Right forearm 22g: patent and intact. Safety measures in place. Will continue to monitor and assess patient
[2018-05-11 20:00] VITALS: BP 133/77
[2018-05-12] MEDS: VANCOMYCIN 1 GM VIAL ONE ×2 (00:07→00:23)
--- NOTE | 2018-05-12 00:07 | NUR ---
RN - NON-ADMIN NOTES non-admin Vanco - duplicate order
[2018-05-12] MEDS: PIPERACILLIN /TAZOBACTAM 2.25 G in IV NS 0.9% 50 ML IV SCH ×5 (00:20→23:58)
[2018-05-12] MEDS: VANCOMYCIN 1 GM in IV D5W 250 ML IV ONE ×2 (00:21→00:26)
[2018-05-12] MEDS: ALBUTEROL FS 2.5 MG/3 ML VIAL.NEB NEB SCH ×4 (00:44→19:17)
[2018-05-12] MEDS: ACETYLCYSTEINE 10% SOLN 400 MG/4 ML VIAL NEB SCH ×3 (00:44→15:54)
[2018-05-12] MEDS: IPRATROPIUM NEB FS 0.5 MG/2.5 ML AMPUL.NEB NEB SCH ×4 (00:44→19:18)
--- NOTE | 2018-05-12 06:12 | NUR ---
MS RN CLOSING NOTES Patient in bed, intermittently asleep, easily aroused. On continues oxygen therapy via mask with no SOB noted. Not in any type of distress. Breathing tx given by RT and monitoring O2 therapy. HOB elevated, turned and repositioned Q2H with bilateral heels and elbows offloaded. No facial grimacing or moaning. IV on right forearm:patent and intact with D5W + Kcl running @100ml/hr. All anticipated needs provided and met. Bed in lowest position with bed alarm on and call light within reach. Will endorse to oncoming shift nurse.
[2018-05-12] MEDS: Potassium Chloride 20 MEQ in IV D5W 1,000 ML IV SCH (07:11)
--- NOTE | 2018-05-12 07:11 | NUR ---
MS RN NOTES 20 mEq k+/liter in D5W 1L just finished. Hanging new 1L bag of 20 mEq k+/liter in D5W Will endorse to oncoming shift nurse
[2018-05-12] MEDS ORDERED: FEE PK DOSING 1 MIN EA MC ONE (07:41)
[2018-05-12 07:57] LABS: BASOPHILS % (AUTO) 0.1 % (0.0-2.0); EOSINOPHILS % (AUTO) 0.4 % (0.0-6.0); HEMATOCRIT 44 % (39-51); HEMOGLOBIN 14.4 g/dL (13.5-17.5); LYMPHOCYTES # (AUTO) 1.1 /CMM (0.8-4.8); LYMPHOCYTES % (AUTO) 6.8 % (20.0-44.0); MEAN CORPUSCULAR HEMOGLOBIN 35 PG (26.0-33.0); MEAN CORPUSCULAR HGB CONC 33 g/dl (31.0-36.0); MEAN CORPUSCULAR VOLUME 105 fL (80-96); MONOCYTES % (AUTO) 6.1 % (2.0-12.0); NEUTROPHILS # (AUTO) 14.7 /CMM (1.8-8.9); NEUTROPHILS % (AUTO) 86.6 % (43.0-81.0); PLATELET COUNT (AUTO) 186 /CMM (150-450); RDW COEFFICIENT OF VARIATION 13.8 (11.5-15.0); RED BLOOD CELL COUNT(AUTO) 4.17 MIL/uL (4.5-6.0)
[2018-05-12 08:00] VITALS: BP 119/69
--- NOTE | 2018-05-12 08:00 | NUR ---
MS RN NOTES PATIENT IN BED, RESPONSIVE, SPEECH UNCLEAR, GARBLED. ON OXYGEN 5L VIA SIMPLE MASK WITH NO SOB, OXYGEN SAT 94%. APPEARS BREATHING FROM HIS MOUTH, NO FACIAL GRIMACE, NO MOANING. STILL NPO ORDERED. CALL LIGHT WITHIN REACH. WILL CONT TO MONITOR.
[2018-05-12 08:11] LABS: CALCIUM, SERUM 8.9 mg/dL (8.5-10.1); CARBON DIOXIDE 26 mmol/L (21-32); CHLORIDE 120 mmol/L (98-107); CREATININE 1.2 mg/dL (0.6-1.3); GLUCOSE 268 mg/dL (74-106); MAGNESIUM 2.3 mg/dL (1.8-2.4); PHOSPHORUS 2.9 mg/dL (2.5-4.9); POTASSIUM 4.3 mmol/L (3.5-5.1); SODIUM SERUM 152 mmol/L (136-145); UREA NITROGEN, BLOOD 32 mg/dL (7-18)
[2018-05-12] MEDS: PAROXETINE HCL 20 MG TABLET NG SCH (09:00)
[2018-05-12] MEDS: BENAZEPRIL HCL 10 MG TABLET NG SCH (09:00)
[2018-05-12] MEDS: LACTOBACILLUS RHAMNOSUS GG 1 EACH CAP.SPRINK NG SCH ×2 (09:00→16:42)
[2018-05-12] MEDS: MEMANTINE HCL 5 MG TABLET NG SCH (09:00)
[2018-05-12] MEDS: PANTOPRAZOLE 40 MG/PACK PACK NG SCH (09:00)
[2018-05-12] MEDS: ENOXAPARIN SODIUM 30 MG/0.3 ML DISP.SYRIN SQ SCH (09:16)
[2018-05-12] MEDS ORDERED: DEXTROSE 50%-WATER 50 ML DISP.SYRIN IV PRN (11:00)
[2018-05-12] MEDS ORDERED: ALBUTEROL FS 2.5 MG/3 ML VIAL.NEB NEB PRN (11:00)
[2018-05-12] MEDS: Potassium Chloride 20 MEQ in IV D5W 1,000 ML IV PRN (11:10)
--- NOTE | 2018-05-12 11:12 | NUR ---
TITRATED TO LOW FLOW OXYGEN AT 4L VIA NC, OXYGEN SAT 94%. PATIENT APPEARS COMFORTABLE, NO SOB, NO NOTED CONGESTION, BREATH SOUNDS CLEAR. WILL CONT TO MONITOR.
[2018-05-12] MEDS: BLOOD SUGAR DIAGNOSTIC 1 EACH STRIP IN SCH ×4 (11:37→21:51)
[2018-05-12] MEDS: INSULIN REGULAR, HUMAN 100 UNIT/ML 3 ML VIAL SQ PRN ×3 (11:41→17:49)
--- NOTE | 2018-05-12 11:41 | NUR ---
INSULIN NOT AVAILABLE, PHARMACY NOTIFIED, SPOKE TO CODY/PHARMACY.
[2018-05-12] MEDS: METRONIDAZOLE 500MG/ NS 100ML 500 MG in PREMIX 1 EA IV SCH ×3 (12:53→23:58)
[2018-05-12 16:00] VITALS: BP 106/63
[2018-05-12] MEDS: VANCOMYCIN 1 GM in IV D5W 250 ML IV SCH (17:13)
[2018-05-12] MEDS: DONEPEZIL 5 MG TABLET NG SCH (18:00)
--- NOTE | 2018-05-12 19:20 | NUR ---
MS RN NOTES Received report. Patient received in bed, awake, on continuous oxygen therapy @5LPM via nasal cannula with HOB elevated. Safety measures in place. Will continue to monitor and assess patient
--- NOTE | 2018-05-12 19:31 | NUR ---
MS RN CLOSING NOTES PATIENT IN BED, SLEEPING, AROUSES EASILY. APPEARS WEAK, BREATHING TREATMENT ATC VIA NEB BY RT, OXYGEN TITRATED TO 5L VIA NC, TOLERATING WELL. MAINTAINED HOB ELEVATED AT ALL TIMES. STILL NPO, CONTINUE ON IVF. BREATHING IMPROVED COMPARED TO YESTERDAY, SEEN BY DR. HESS/GI, PLAN EGD WITH PEG PLACEMENT IN AM. RJ GIMENEZ (PATIENTS BROTHER) CONSENTED PROCEDURE, CONSENT FORM PLACE IN THE CHART. NO BOWEL MOVEMENT, NO DIARRHEA DURING THE SHIFT. ENDORSED TO ONCOMING RN.
[2018-05-12 20:00] VITALS: BP 120/68
[2018-05-13] MEDS: ACETYLCYSTEINE 10% SOLN 400 MG/4 ML VIAL NEB SCH ×4 (00:52→23:35)
[2018-05-13] MEDS: ALBUTEROL FS 2.5 MG/3 ML VIAL.NEB NEB SCH ×4 (00:52→20:22)
[2018-05-13] MEDS: IPRATROPIUM NEB FS 0.5 MG/2.5 ML AMPUL.NEB NEB SCH ×4 (00:53→20:22)
[2018-05-13] MEDS: BLOOD SUGAR DIAGNOSTIC 1 EACH STRIP IN SCH ×6 (01:58→22:42)
[2018-05-13] MEDS: Potassium Chloride 20 MEQ in IV D5W 1,000 ML IV PRN ×2 (03:00→19:11)
[2018-05-13] MEDS: METRONIDAZOLE 500MG/ NS 100ML 500 MG in PREMIX 1 EA IV SCH ×3 (05:11→17:19)
--- NOTE | 2018-05-13 06:03 | NUR ---
MS RN CLOSING NOTES Patient remained in bed, intermittently sleeping, easily aroused. Possible PEG placement today. On antibiotic treatment: given and tolerated. No face grimacing or moaning noted or reported. Patient kept clean and dry. Accucheck Q4H. On round the clock breathing treatment. IV on RFA and LFA 22g: patent and intact with D5W + 20mEq Kcl @100ml/hr running. Turned and reposition every two hours and off-loading bilateral heels and elbows to reduce pressure on bony prominences. All need provided and met. Safety measures in place. Bed in lowest position with bed alarm on and call light within reach. Will endorse to oncoming shift nurse.
[2018-05-13] MEDS: PIPERACILLIN /TAZOBACTAM 2.25 G in IV NS 0.9% 50 ML IV SCH (06:07)
--- NOTE | 2018-05-13 07:24 | NUR ---
MS RN OPENING NOTES RECEIVED PATIENT IN BED AWAKE IN NO ACUTE SIGNS OF DISTRESS. A/O X1. CALMED, QUIET WITH NO SIGNS OF FACIAL GRIMACING NOTED AT THIS TIME. ON 02 VIA N/C AT 5LPM, TOLERATING WELL WITH NO SOB NOTED. IV ACCESS ON RFA AND LFA BOTH INTACT AND PATENT. IVF OF D5W +20MEQ KCL INFUSING AT 100ML/HR. SAFETY MEASURES IN PLACE. HOB ELEVATED. BED IN LOW/LOCKED POSITION WITH SIDE-RAILS UP APPROPRIATE. CALL LIGHT IN REACH. WILL KEEP PATIENT SAFE AND COMFORTABLE. WILL CONTINUE TO MONITOR ACCORDINGLY.
[2018-05-13 07:47] LABS: BASOPHILS # (AUTO) 0.1 /CMM (0.0-0.2); BASOPHILS % (AUTO) 0.5 % (0.0-2.0); EOSINOPHILS % (AUTO) 0.7 % (0.0-6.0); HEMATOCRIT 39 % (39-51); HEMOGLOBIN 13.1 g/dL (13.5-17.5); LYMPHOCYTES # (AUTO) 1.1 /CMM (0.8-4.8); LYMPHOCYTES % (AUTO) 7.5 % (20.0-44.0); MEAN CORPUSCULAR HEMOGLOBIN 35 PG (26.0-33.0); MEAN CORPUSCULAR HGB CONC 33 g/dl (31.0-36.0); MEAN CORPUSCULAR VOLUME 105 fL (80-96); MONOCYTES # (AUTO) 0.9 /CMM (0.1-1.30); MONOCYTES % (AUTO) 5.8 % (2.0-12.0); NEUTROPHILS # (AUTO) 12.7 /CMM (1.8-8.9); NEUTROPHILS % (AUTO) 85.5 % (43.0-81.0); PLATELET COUNT (AUTO) 172 /CMM (150-450); RDW COEFFICIENT OF VARIATION 13.1 (11.5-15.0); RED BLOOD CELL COUNT(AUTO) 3.76 MIL/uL (4.5-6.0); WHITE BLOOD COUNT (AUTO) 14.8 K/uL (4.3-11.0)
[2018-05-13 08:00] VITALS: BP 123/67
[2018-05-13 08:16] LABS: CALCIUM, SERUM 8.4 mg/dL (8.5-10.1); CARBON DIOXIDE 26 mmol/L (21-32); CHLORIDE 117 mmol/L (98-107); CREATININE 1.1 mg/dL (0.6-1.3); GLUCOSE 177 mg/dL (74-106); MAGNESIUM 2.1 mg/dL (1.8-2.4); PHOSPHORUS 3.5 mg/dL (2.5-4.9); POTASSIUM 3.9 mmol/L (3.5-5.1); SODIUM SERUM 151 mmol/L (136-145); UREA NITROGEN, BLOOD 27 mg/dL (7-18)
[2018-05-13] MEDS: ENOXAPARIN SODIUM 30 MG/0.3 ML DISP.SYRIN SQ SCH (08:38)
[2018-05-13] MEDS: BENAZEPRIL HCL 10 MG TABLET NG SCH (08:39)
[2018-05-13] MEDS: MEMANTINE HCL 5 MG TABLET NG SCH (08:39)
[2018-05-13] MEDS: PANTOPRAZOLE 40 MG/PACK PACK NG SCH (08:39)
[2018-05-13] MEDS: PAROXETINE HCL 20 MG TABLET NG SCH (08:39)
[2018-05-13] MEDS: LACTOBACILLUS RHAMNOSUS GG 1 EACH CAP.SPRINK NG SCH ×2 (08:40→17:00)
[2018-05-13] MEDS: INSULIN REGULAR, HUMAN 100 UNIT/ML 3 ML VIAL SQ PRN ×4 (08:49→23:34)
[2018-05-13] MEDS: VANCOMYCIN 1 GM in IV D5W 250 ML IV SCH (11:34)
[2018-05-13] MEDS: PIPERACILLIN /TAZOBACTAM 3.375 G in IV D5W 50 ML IV SCH ×2 (12:37→17:19)
[2018-05-13] MEDS ORDERED: FEE PK DOSING 1 MIN EA MC ONE (14:56)
[2018-05-13 16:00] VITALS: BP 115/69
[2018-05-13] MEDS: DONEPEZIL 5 MG TABLET NG SCH (17:18)
--- NOTE | 2018-05-13 19:07 | NUR ---
MS RN CLOSING NOTES PATIENT IN BED LYING AT MODERATE HIGH BACKREST POSITION. A/O X1. NO SIGNS OF FACIAL GRIMACING NOTED AT THIS TIME. NPO MAINTAINED. ON 02 VIA N/C AT 5LPM, TOLERATING WELL WITH NO SOB NOTED. IV ACCESS ON RFA AND LFA BOTH INTACT AND PATENT. IVF OF D5W +20MEQ KCL INFUSING AT 100ML/HR. ALL SAFETY MEASURES KEPT IN PLACE. HOB ELEVATED. BED IN LOW/LOCKED POSITION WITH SIDE-RAILS UP APPROPRIATE. CALL LIGHT IN REACH. WILL KEEP PATIENT SAFE AND COMFORTABLE. ALL NEEDS AND CARE PROVIDED WELL. TURNED AND REPOSITIONED Q 2HRS AND PRN. WILL ENDORSE TO ETYMOLOGY PROFESSOR NURSE FOR ROSEANNE.
[2018-05-13 20:00] VITALS: BP 117/65
[2018-05-14] MEDS: METRONIDAZOLE 500MG/ NS 100ML 500 MG in PREMIX 1 EA IV SCH ×5 (00:36→23:00)
[2018-05-14] MEDS: IPRATROPIUM NEB FS 0.5 MG/2.5 ML AMPUL.NEB NEB SCH ×4 (01:25→19:33)
[2018-05-14] MEDS: ALBUTEROL FS 2.5 MG/3 ML VIAL.NEB NEB SCH ×4 (01:25→19:33)
[2018-05-14] MEDS: PIPERACILLIN /TAZOBACTAM 3.375 G in IV D5W 50 ML IV SCH ×4 (01:41→17:06)
[2018-05-14] MEDS: INSULIN REGULAR, HUMAN 100 UNIT/ML 3 ML VIAL SQ PRN ×2 (01:52→20:54)
[2018-05-14] MEDS: BLOOD SUGAR DIAGNOSTIC 1 EACH STRIP IN SCH ×6 (01:57→20:39)
--- NOTE | 2018-05-14 06:12 | NUR ---
MS/RN PATIENT AWAKE, COMFORTABLE, NO DISTRESS NOTED, ON AND OFF SLEEP NOTED THE WHOLE SHIFT, ALL NEEDS ATTENDED AT THIS TIME, WILL CONTINUE TO MONITOR.
[2018-05-14 07:26] LABS: CALCIUM, SERUM 8.3 mg/dL (8.5-10.1); CARBON DIOXIDE 24 mmol/L (21-32); CHLORIDE 116 mmol/L (98-107); CREATININE 1.1 mg/dL (0.6-1.3); GLUCOSE 127 mg/dL (74-106); PHOSPHORUS 3.5 mg/dL (2.5-4.9); POTASSIUM 3.4 mmol/L (3.5-5.1); SODIUM SERUM 148 mmol/L (136-145); UREA NITROGEN, BLOOD 23 mg/dL (7-18); VANCOMYCIN,TROUGH 10 ug/ml (12-20)
--- NOTE | 2018-05-14 07:37 | NUR ---
MS RN OPENING NOTES RECEIVED PT FROM NIGHTSHIFT NURSE IN STABLE CONDITION. PT IS OBTUNDENT. HE OPENS HIS EYES SPONTANEOUSLY, IS RESPONSIVE TO TACTILE STIMULI, AND MUMBLES INAUDIBLE SOUNDS. NO SOB NOTED. BREATHING IS EVEN AND UNLABORED. PT ON O2 THERAPY VIA NC WITH A FLOW RATE SET TO 5L/MIN AND SATING AT 95%. NO ACUTE SIGNS OF DISTRESS NOTED. MULTIPLE IVS NOTED. ONE TO PT'S RIGHT FA AND THE OTHER TO HIS LEFT. IVS NOTED TO BE PATENT AND INTACT. NO REDNESS OR SIGNS OF INFILTRATION NOTED. PT CURRENTLY RECEIVING ZOSYN INFUSION AND TOLERATING IT WELL. BED IN LOW LOCKED POSITION, SIDE RAILS UP X3, ESTEFANIA LIGHT WITHIN REACH, BED ALARM ON. WILL CONTINUE TO MONITOR.
[2018-05-14] MEDS: ACETYLCYSTEINE 10% SOLN 400 MG/4 ML VIAL NEB SCH ×2 (07:41→13:41)
--- NOTE | 2018-05-14 07:46 | NUR ---
MS/RN NO VANCO TROUGH RESULT YET WHEN I LAST CHECKED AT AROUND 0630. ENDORSED DOSE TO NEXT RN MARYLOUTU.
[2018-05-14] MEDS: VANCOMYCIN 1 GM in IV D5W 250 ML IV SCH (08:04)
[2018-05-14] MEDS: PAROXETINE HCL 20 MG TABLET NG SCH (08:05)
[2018-05-14] MEDS: BENAZEPRIL HCL 10 MG TABLET NG SCH (08:05)
[2018-05-14] MEDS: LACTOBACILLUS RHAMNOSUS GG 1 EACH CAP.SPRINK NG SCH ×2 (08:05→16:58)
[2018-05-14] MEDS: PANTOPRAZOLE 40 MG/PACK PACK NG SCH (08:05)
[2018-05-14] MEDS: MEMANTINE HCL 5 MG TABLET NG SCH (08:05)
[2018-05-14] MEDS: ENOXAPARIN SODIUM 30 MG/0.3 ML DISP.SYRIN SQ SCH (08:45)
[2018-05-14] MEDS: Potassium Chloride 20 MEQ in IV D5W 1,000 ML IV PRN ×2 (08:46→20:30)
[2018-05-14 10:25] LABS: BASOPHILS % (AUTO) 0.1 % (0.0-2.0); EOSINOPHILS % (AUTO) 1.4 % (0.0-6.0); HEMATOCRIT 38 % (39-51); HEMOGLOBIN 13.2 g/dL (13.5-17.5); LYMPHOCYTES # (AUTO) 1.1 /CMM (0.8-4.8); LYMPHOCYTES % (AUTO) 7.9 % (20.0-44.0); MEAN CORPUSCULAR HEMOGLOBIN 36 PG (26.0-33.0); MEAN CORPUSCULAR HGB CONC 35 g/dl (31.0-36.0); MEAN CORPUSCULAR VOLUME 102 fL (80-96); MONOCYTES # (AUTO) 0.8 /CMM (0.1-1.30); MONOCYTES % (AUTO) 6.1 % (2.0-12.0); NEUTROPHILS # (AUTO) 11.7 /CMM (1.8-8.9); NEUTROPHILS % (AUTO) 84.5 % (43.0-81.0); PLATELET COUNT (AUTO) 169 /CMM (150-450); RDW COEFFICIENT OF VARIATION 12.7 (11.5-15.0); WHITE BLOOD COUNT (AUTO) 13.8 K/uL (4.3-11.0)
--- NOTE | 2018-05-14 10:45 | NUR ---
MS RN NOTES: 02 TITRATION PT'S FIO2 TITRATED TO 4L/MIN. PT SATING WELL @ 94%. NO SIGNS OF RESPIRATORY DISTRESS NOTED
[2018-05-14] MEDS: POTASSIUM CL. PREMIX PERIPHER. 50 ML IV SCH ×2 (10:58→12:06)
[2018-05-14 16:00] VITALS: BP_SYST 106; BP_SYST 125; BP_DIAS 57; BP_DIAS 72
[2018-05-14] MEDS: DONEPEZIL 5 MG TABLET NG SCH (16:58)
[2018-05-14] MEDS: VANCOMYCIN 1 GM in IV NS 0.9% 250 ML IV SCH (18:17)
--- NOTE | 2018-05-14 18:43 | NUR ---
MS RN CLOSING NOTES PT REMAINS STABLE. ALL NEEDS ANTICIPATED FOR AND MET. IVS REMAIN PATENT AND INTACT. PT REPOSITIONED AND TURNED Q2HRS PER PROTOCOL. AM AND PRN CARE RENDERED. NPO STATUS MAINTAINED. PT WAS BUMPED BACK UP TO 5L HE WA SATING IN THE LOW 90S ON 4L. SAFETY MEASURES REMAIN IN PLACE. WILL ENDORSE TO NIGHTSHIFT NURSE FOR ROSEANNE
--- NOTE | 2018-05-14 19:00 | NUR ---
ENROLLMENT ELIGIBILITY REPRESENTATIVE OPENING NOTE RECEIVE PATIENT AWAKE IN BED, A/O X1, OPENS EYES, STABLE NO FACIAL GRIMACING NOTED FOR PAIN. NO SOB OR DISTRESS NOTED, CALL LIGHT WITHIN REACH. SAFETY MEASURES IMPLEMENTED. WILL CONTINUE TO MONITOR THROUGHOUT SHIFT.
[2018-05-14 20:00] VITALS: BP 111/72
[2018-05-15] MEDS: PIPERACILLIN /TAZOBACTAM 3.375 G in IV D5W 50 ML IV SCH ×4 (00:20→17:01)
[2018-05-15] MEDS: ALBUTEROL FS 2.5 MG/3 ML VIAL.NEB NEB SCH ×4 (00:46→19:08)
[2018-05-15] MEDS: ACETYLCYSTEINE 10% SOLN 400 MG/4 ML VIAL NEB SCH ×4 (00:46→22:54)
[2018-05-15] MEDS: IPRATROPIUM NEB FS 0.5 MG/2.5 ML AMPUL.NEB NEB SCH ×4 (00:46→19:08)
[2018-05-15] MEDS: BLOOD SUGAR DIAGNOSTIC 1 EACH STRIP IN SCH ×6 (01:11→22:37)
[2018-05-15] MEDS: INSULIN REGULAR, HUMAN 100 UNIT/ML 3 ML VIAL SQ PRN ×5 (01:13→22:43)
[2018-05-15] MEDS: METRONIDAZOLE 500MG/ NS 100ML 500 MG in PREMIX 1 EA IV SCH ×4 (05:30→23:12)
[2018-05-15] MEDS: VANCOMYCIN 1 GM in IV NS 0.9% 250 ML IV SCH ×2 (05:30→19:04)
--- NOTE | 2018-05-15 06:15 | NUR ---
MS RN CLOSING NOTES PT COMFORTABLY ASLEEP AND EASILY AWAKEN, 02 SAT 4LPM VIA NC 02 SAT AT 94%, ASSISTED REPOSITION EVERY 2 HOURS, RESPIRATION EVEN AND UNLABORED. KEPT CLEAN AND DRY AND COMFORTABLE, ALL NURSING CARE RENDERED. NEEDS ATTENDED AND ANTICIPATED, GOOD SKIN CARE PROVIDED. ON LOW BED AT ALL TIMES TO ENSURE SAFETY. SAFE HAZARD FREE ENVIRONMENT PROVIDED. CALL LIGHT WITHIN EASY TO REACH. WILL ENDORSE NEXT SHIFT CONTINUITY OF CARE.
--- NOTE | 2018-05-15 07:52 | NUR ---
MS RN OPENING NOTES RECEIVED PT FROM NIGHTSHIFT NURSE IN STABLE CONDITION. PT IS OBTUNDENT. HE OPENS HIS EYES SPONTANEOUSLY, IS RESPONSIVE TO TACTILE STIMULI, AND MUMBLES INAUDIBLE SOUNDS. NO SOB NOTED OR ACUTE SIGNS OF DISTRESS NOTED. BREATHING IS EVEN AND UNLABORED. PT ON 5 L O2 THERAPY VIA NC WITH AND SATING AT 98%. NO ACUTE SIGNS OF DISTRESS NOTED. MULTIPLE IVS NOTED. ONE TO PT'S RIGHT FA AND THE OTHER TO HIS LEFT. IVS NOTED TO BE PATENT AND INTACT. NO REDNESS OR SIGNS OF INFILTRATION NOTED. PT CURRENTLY RECEIVING ZOSYN INFUSION AND TOLERATING IT WELL. BED IN LOW LOCKED POSITION, SIDE RAILS UP X3, CALL LIGHT WITHIN REACH, BED ALARM ON. WILL CONTINUE TO MONITOR.
[2018-05-15 08:00] VITALS: BP 117/62
[2018-05-15] MEDS: MEMANTINE HCL 5 MG TABLET NG SCH (08:10)
[2018-05-15] MEDS: LACTOBACILLUS RHAMNOSUS GG 1 EACH CAP.SPRINK NG SCH ×2 (08:10→16:28)
[2018-05-15] MEDS: BENAZEPRIL HCL 10 MG TABLET NG SCH (08:10)
[2018-05-15] MEDS: PAROXETINE HCL 20 MG TABLET NG SCH (08:11)
[2018-05-15] MEDS: PANTOPRAZOLE 40 MG/PACK PACK NG SCH (08:12)
[2018-05-15 08:49] LABS: CARBON DIOXIDE 24 mmol/L (21-32); CHLORIDE 113 mmol/L (98-107); CREATININE 1.1 mg/dL (0.6-1.3); GLUCOSE 163 mg/dL (74-106); PHOSPHORUS 3.4 mg/dL (2.5-4.9); POTASSIUM 3.8 mmol/L (3.5-5.1); SODIUM SERUM 146 mmol/L (136-145); UREA NITROGEN, BLOOD 19 mg/dL (7-18)
[2018-05-15] MEDS: ENOXAPARIN SODIUM 30 MG/0.3 ML DISP.SYRIN SQ SCH (09:12)
[2018-05-15 16:00] VITALS: BP 120/78
[2018-05-15] MEDS: Potassium Chloride 20 MEQ in IV D5W 1,000 ML IV PRN (17:08)
[2018-05-15] MEDS: DONEPEZIL 5 MG TABLET NG SCH (18:00)
--- NOTE | 2018-05-15 18:31 | NUR ---
MS RN CLOSING NOTES PT REMAINS STABLE. ALL NEEDS ANTICIPATED FOR AND MET. IVS REMAIN PATENT AND INTACT. PT REPOSITIONED AND TURNED Q2HRS PER PROTOCOL. AM AND PRN CARE RENDERED. NPO STATUS MAINTAINED. NO ACUTE CHANGES IN CONDITION NOTED. SAFETY MEASURES REMAIN IN PLACE. WILL ENDORSE TO NIGHTSHIFT NURSE FOR ROSEANNE
--- NOTE | 2018-05-15 19:45 | NUR ---
RN OPENING NOTES RECEIVED REPORT FROM DAYSHIFT RN AFSATU. FOUND Pt AWAKE, RESTING IN BED. NO S/S OF ACUTE DISTRESS OR SOB NOTED. Pt IS NONVERBAL, MUMBLES, OPENS EYES, AND IS ABLE TO MOVE ARMS. Pt IS NPO. IV ACCESS ON RFA #22G, SL & LFA #22G IVF D5W + 20MEQ KCL. SAFETY MEASURES IN PLACE. BED LOW, LOCKED, HOB ELEVATED, SIDE RAILS UP, CALL LIGHT AND BEDSIDE TABLE WITHIN REACH. WILL CONTINUE TO MONITOR Pt THROUGHOUT THE NIGHT FOR SAFETY.
[2018-05-15 20:00] VITALS: BP 119/65
[2018-05-15 21:00] VITALS: BP 119/65
--- NOTE | 2018-05-15 21:05 | NUR ---
RN NOTES ACCUCHECK BG 141. ADMINISTERED 2UN OF INSULIN PER SLIDING SCALE.
[2018-05-16] MEDS: PIPERACILLIN /TAZOBACTAM 3.375 G in IV D5W 50 ML IV SCH ×5 (01:09→23:32)
[2018-05-16] MEDS: BLOOD SUGAR DIAGNOSTIC 1 EACH STRIP IN SCH ×6 (01:10→21:19)
[2018-05-16] MEDS: ALBUTEROL FS 2.5 MG/3 ML VIAL.NEB NEB SCH ×4 (01:13→19:44)
[2018-05-16] MEDS: IPRATROPIUM NEB FS 0.5 MG/2.5 ML AMPUL.NEB NEB SCH ×4 (01:13→19:44)
--- NOTE | 2018-05-16 01:28 | NUR ---
RN NOTES ACCUCHECK BG 126. NO INSULIN COVERAGE NEEDED AT THIS TIME.
[2018-05-16] MEDS: METRONIDAZOLE 500MG/ NS 100ML 500 MG in PREMIX 1 EA IV SCH ×3 (05:09→18:37)
--- NOTE | 2018-05-16 05:30 | NUR ---
RN NOTES ACCUCHECK BG 116. NO INSULIN COVERAGE NEEDED AT THIS TIME.
[2018-05-16] MEDS: Potassium Chloride 20 MEQ in IV D5W 1,000 ML IV PRN (05:54)
--- NOTE | 2018-05-16 06:45 | NUR ---
RN CLOSING NOTES NO SIGNIFICANT CHANGES DURING THE NIGHT. Pt REMAINS IN STABLE CONDITION AT THIS TIME. NO S/S OF ACUTE DISTRESS OR SOB NOTED DURING THE SHIFT. ALL NEEDS MET AND ATTENDED TO. SAFETY MEASURES IN PLACE. BED LOW, LOCKED, HOB ELEVATED, SIDE RAILS UP, CALL LIGHT AND BEDSIDE TABLE WITHIN REACH. WILL ENDORSE TO DAYSHIFT RN FOR Pt's ROSEANNE.
[2018-05-16] MEDS: VANCOMYCIN 1 GM in IV NS 0.9% 250 ML IV SCH ×2 (06:58→17:38)
--- NOTE | 2018-05-16 07:20 | NUR ---
RN NOTES PT IS LAYING DOWN IN BED, SLEEPING COMFORTABLY. PT ON 5L O2, RESPIRATIONS ARE EVEN AND UNLABORED. IV ON RFA INTACT AND RUNNING D5W + 20 MEQ KCL @ 100ML/HR. NO SIGNS OF DISTRESS NOTED. SAFETY MEASURES ARE IN PLACE, CALL LIGHT IS IN REACH. WILL CONTINUE TO MONITOR.
[2018-05-16 07:37] LABS: EOSINOPHILS % (AUTO) 1.7 % (0.0-6.0); HEMATOCRIT 36 % (39-51); HEMOGLOBIN 12.7 g/dL (13.5-17.5); LYMPHOCYTES # (AUTO) 1.1 /CMM (0.8-4.8); LYMPHOCYTES % (AUTO) 9.9 % (20.0-44.0); MEAN CORPUSCULAR HEMOGLOBIN 36 PG (26.0-33.0); MEAN CORPUSCULAR HGB CONC 35 g/dl (31.0-36.0); MEAN CORPUSCULAR VOLUME 102 fL (80-96); MONOCYTES # (AUTO) 0.7 /CMM (0.1-1.30); MONOCYTES % (AUTO) 6.3 % (2.0-12.0); NEUTROPHILS % (AUTO) 82.1 % (43.0-81.0); PLATELET COUNT (AUTO) 204 /CMM (150-450); RDW COEFFICIENT OF VARIATION 12.2 (11.5-15.0); RED BLOOD CELL COUNT(AUTO) 3.58 MIL/uL (4.5-6.0)
[2018-05-16 08:00] VITALS: BP 121/72
[2018-05-16 08:01] LABS: CALCIUM, SERUM 6.8 mg/dL (8.5-10.1); CARBON DIOXIDE 17 mmol/L (21-32); CHLORIDE 110 mmol/L (98-107); CREATININE 0.9 mg/dL (0.6-1.3); GLUCOSE 266 mg/dL (74-106); MAGNESIUM 1.5 mg/dL (1.8-2.4); PHOSPHORUS 3.7 mg/dL (2.5-4.9); POTASSIUM 2.9 mmol/L (3.5-5.1); SODIUM SERUM 140 mmol/L (136-145)
[2018-05-16] MEDS: ACETYLCYSTEINE 10% SOLN 400 MG/4 ML VIAL NEB SCH ×3 (08:01→23:29)
[2018-05-16] MEDS: MEMANTINE HCL 5 MG TABLET NG SCH (08:02)
[2018-05-16] MEDS: PANTOPRAZOLE 40 MG/PACK PACK NG SCH (08:02)
[2018-05-16] MEDS: LACTOBACILLUS RHAMNOSUS GG 1 EACH CAP.SPRINK NG SCH ×2 (08:02→16:29)
[2018-05-16] MEDS: BENAZEPRIL HCL 10 MG TABLET NG SCH (08:02)
[2018-05-16] MEDS: PAROXETINE HCL 20 MG TABLET NG SCH (08:02)
[2018-05-16 08:23] LABS: UREA NITROGEN, BLOOD 12 mg/dL (7-18)
[2018-05-16] MEDS: ENOXAPARIN SODIUM 30 MG/0.3 ML DISP.SYRIN SQ SCH (08:32)
[2018-05-16] MEDS: POTASSIUM CL. PREMIX PERIPHER. 50 ML IV SCH ×6 (09:49→17:13)
--- NOTE | 2018-05-16 10:00 | NUR ---
RN NOTES IV ON RFA INFILTRATED. IV REMOVED, ARM KEPT ELEVATED AND ICE PACKS APPLIED TO SWOLLEN AREA. WILL CONTINUE TO MONITOR FOR CHANGES.
[2018-05-16] MEDS: Magnesium 1GM/D5W 100ML PREMIX 100 ML IV SCH ×2 (11:23→12:27)
[2018-05-16 16:00] VITALS: BP_SYST 124; BP_DIAS 110; BP_DIAS 78
[2018-05-16] MEDS: DONEPEZIL 5 MG TABLET NG SCH (17:38)
--- NOTE | 2018-05-16 18:51 | NUR ---
RN NOTES PT IS SITTING UP IN BED, RESTING COMFORTABLY. PT ON 5L O2, RESPIRATIONS ARE EVEN AND UNLABORED. IV ON SAMUEL AND LFA INTACT AND RUNNING D5W +20 MEQ KCL @ 100ML/HR. NO SIGNS OF DISTRESS NOTED. ALL PT NEEDS MET, SKIN KEPT CLEAN AND DRY, PT REPOSITIONED Q2HRS. SAFETY MEASURES ARE IN PLACE, CALL LIGHT IS IN REACH. WILL ENDORSE TO CARBON PLANT GRINDER RN FOR CONTINUITY OF CARE.
--- NOTE | 2018-05-16 19:49 | NUR ---
MS RN NOTES Report received. Patient received in bed, sleeping, easily aroused. Patient is non-verbal. No facial grimacing noted or moaning noted. On continuous oxygen at 4LPM via nasal cannula. On routine breathing treatment. No SOB noted. Not in any type of distress. Safety measures in place. Bed in lowest position with bed alarm on and call light within reach. HOB elevated. Will continue to monitor and assess patient.
[2018-05-16 20:00] VITALS: BP 147/74
--- NOTE | 2018-05-16 23:25 | NUR ---
MS RN NOTES Patient awake and removed nasal cannula. Reoriented patient that oxygen therapy is necessary. Patient unable to comprehend and continues to remove cannula. Will continue to monitor patient
--- NOTE | 2018-05-17 00:05 | NUR ---
MS RN NOTES Patient noted with nasal cannula off. Reoriented patient not to take the nasal cannula off. Patient is confused. Will continue to reorient and monitor patient
[2018-05-17] MEDS: METRONIDAZOLE 500MG/ NS 100ML 500 MG in PREMIX 1 EA IV SCH ×4 (00:10→17:36)
[2018-05-17] MEDS: ALBUTEROL FS 2.5 MG/3 ML VIAL.NEB NEB SCH ×4 (02:10→19:52)
[2018-05-17] MEDS: IPRATROPIUM NEB FS 0.5 MG/2.5 ML AMPUL.NEB NEB SCH ×4 (02:11→19:52)
[2018-05-17] MEDS: BLOOD SUGAR DIAGNOSTIC 1 EACH STRIP IN SCH ×6 (02:14→21:04)
--- NOTE | 2018-05-17 02:34 | NUR ---
MS RN NOTES No insulin given. Patient is on NPO. Will continue to monitor patient's blood sugar.
[2018-05-17] MEDS: Potassium Chloride 20 MEQ in IV D5W 1,000 ML IV PRN ×2 (05:24→17:52)
[2018-05-17] MEDS: PIPERACILLIN /TAZOBACTAM 3.375 G in IV D5W 50 ML IV SCH ×3 (05:32→17:02)
[2018-05-17] MEDS: VANCOMYCIN 1 GM in IV NS 0.9% 250 ML IV SCH ×2 (06:53→17:46)
[2018-05-17] MEDS: ACETYLCYSTEINE 10% SOLN 400 MG/4 ML VIAL NEB SCH ×3 (07:38→23:29)
--- NOTE | 2018-05-17 07:46 | NUR ---
MS RN OPENING NOTES RECEIVED PATIENT AWAKE IN BED IN NO ACUTE SIGNS OF DISTRESS. A/O X1. OPENS EYES AND MUMBLES. NO FACIAL GRIMACING OBSERVED AND SEEMS COMFORTABLE AT THIS TIME. ON 02 VIA N/C AT 2LPM, TOLERATING WELL WITH NO SOB NOTED. NPO AND DNR STATUS MAINTAINED. IV ACCESS ON LFA AND SAMUEL BOTH INTACT AND PATENT. IVF OF D5W + 20MEQ KCL INFUSING AT 100ML/HR. SAFETY MEASURES IN PLACE. BED IN LOW/LOCKED POSITION. HOB ELEVATED WITH SIDE RAILS UP. CALL LIGHT WITHIN REACH. WILL CONTINUE TO MONITOR PT ACCORDINGLY.
--- NOTE | 2018-05-17 07:54 | NUR ---
MS RN CLOSING NOTES Report given to oncoming shift nurse. Patient remained in bed, sleeping intermittently, easily aroused. On continuous oxygen therapy @4-5 LPM via nasal cannula with no SOB noted. Not in any type of distress. No Labored breathing noted. IV on SAMUEL and LFA 22g: patent and intact with D5W + 20 mEq Kcl running @100 ml/hr, tolerating well. On antibiotics treatment for pneumonia. Awaiting decision for palliative care or hospice care from family. JEREMIAS Espinosa [phone]. AM labs on 05/17/18. Turned and repositioned every two hours; offloading bilateral heels and elbows. Kept clean and dry. All needs provided and met. Safety measures in place.
[2018-05-17 08:00] VITALS: BP 126/47
[2018-05-17 08:42] LABS: CALCIUM, SERUM 7.6 mg/dL (8.5-10.1); CARBON DIOXIDE 19 mmol/L (21-32); CHLORIDE 110 mmol/L (98-107); CREATININE 0.9 mg/dL (0.6-1.3); GLUCOSE 160 mg/dL (74-106); POTASSIUM 3.3 mmol/L (3.5-5.1); SODIUM SERUM 139 mmol/L (136-145); UREA NITROGEN, BLOOD 10 mg/dL (7-18)
[2018-05-17 08:51] LABS: HEMATOCRIT 37 % (39-51); HEMOGLOBIN 12.5 g/dL (13.5-17.5); MEAN CORPUSCULAR HEMOGLOBIN 34 PG (26.0-33.0); MEAN CORPUSCULAR HGB CONC 34 g/dl (31.0-36.0); MEAN CORPUSCULAR VOLUME 101 fL (80-96); RED BLOOD CELL COUNT(AUTO) 3.64 MIL/uL (4.5-6.0); WHITE BLOOD COUNT (AUTO) 10.5 K/uL (4.3-11.0)
[2018-05-17 08:52] LABS: BASOPHILS % (AUTO) 0.4 % (0.0-2.0); EOSINOPHILS % (AUTO) 1.5 % (0.0-6.0); MONOCYTES % (AUTO) 7.9 % (2.0-12.0); NEUTROPHILS % (AUTO) 82.2 % (43.0-81.0); PLATELET COUNT (AUTO) 252 /CMM (150-450); RDW COEFFICIENT OF VARIATION 12.9 (11.5-15.0)
[2018-05-17] MEDS: BENAZEPRIL HCL 10 MG TABLET NG SCH (09:00)
[2018-05-17] MEDS: PANTOPRAZOLE 40 MG/PACK PACK NG SCH (09:00)
[2018-05-17] MEDS: MEMANTINE HCL 5 MG TABLET NG SCH (09:00)
[2018-05-17] MEDS: PAROXETINE HCL 20 MG TABLET NG SCH (09:00)
[2018-05-17] MEDS: LACTOBACILLUS RHAMNOSUS GG 1 EACH CAP.SPRINK NG SCH ×2 (09:00→16:23)
[2018-05-17 09:01] LABS: CALCIUM, SERUM 7.7 mg/dL (8.5-10.1); CARBON DIOXIDE 19 mmol/L (21-32); CHLORIDE 110 mmol/L (98-107); CREATININE 0.8 mg/dL (0.6-1.3); GLUCOSE 158 mg/dL (74-106); MAGNESIUM 1.8 mg/dL (1.8-2.4); PHOSPHORUS 2.5 mg/dL (2.5-4.9); POTASSIUM 3.5 mmol/L (3.5-5.1); SODIUM SERUM 138 mmol/L (136-145); UREA NITROGEN, BLOOD 11 mg/dL (7-18)
[2018-05-17] MEDS: ENOXAPARIN SODIUM 30 MG/0.3 ML DISP.SYRIN SQ SCH (09:10)
[2018-05-17] MEDS: INSULIN REGULAR, HUMAN 100 UNIT/ML 3 ML VIAL SQ PRN ×3 (09:16→16:29)
[2018-05-17] MEDS: POTASSIUM CL. PREMIX PERIPHER. 50 ML IV SCH ×2 (09:57→10:57)
[2018-05-17] MEDS ORDERED: POTASSIUM CHLORIDE 20 MEQ POWDER PACKET GT ONE (11:00)
--- NOTE | 2018-05-17 11:34 | NUR ---
RN NOTES URINE SPECIMEN COLLECTED FOR CULTURE USING STRAIGHT CATHETER. CALLED LAB TO PICK-UP SPACIMEN FROM [facility].
--- NOTE | 2018-05-17 14:46 | NUR ---
RN NOTES PATIENT NOTED WITH LOW POTASSIUM 3.3 TODAY, REPLACED WITH 20MEQ OF KCL IV ORDERED.
[2018-05-17 16:00] VITALS: BP 125/72
[2018-05-17] MEDS: Z GUARD REMEDY 2 OZ OINT TP PRN (16:30)
[2018-05-17] MEDS: DONEPEZIL 5 MG TABLET NG SCH (17:03)
--- NOTE | 2018-05-17 18:14 | NUR ---
MS RN CLOSING NOTES PATIENT AWAKE IN BED LYING AT MODERATE HIGH BACKREST POSITION. A/O X1. CONFUSED AND RESPONSIVE TO VERBAL STIMULI AT TIMES. NO SIGNIFICANT CHANGES IN STATUS NOTED THROUGHOUT THE DAY. ON 02 VIA N/C AT 2LPM, TOLERATING WELL WITH NO SOB NOTED. NPO AND DNR STATUS MAINTAINED. IV ACCESS ON LFA AND SAMUEL BOTH INTACT AND PATENT. IVF OF D5W + 20MEQ KCL INFUSING AT 100ML/HR. TURNED AND REPOSITIONED PT FROM SIDE TO SIDE Q2HRS AND PRN. ALL SAFETY MEASURES KEPT IN PLACE. BED IN LOW/LOCKED POSITION. HOB ELEVATED WITH SIDE RAILS UP. CALL LIGHT WITHIN REACH. ALL NEEDS AND CARE PROVIDED WELL. WILL ENDORSE TO MOLECULAR MODELER NURSE FOR ROSEANNE.
--- NOTE | 2018-05-17 19:42 | NUR ---
MS RN NOTES Report received. Patient received in bed, intermittently sleeping and verbally responsive with garbled speech. No complaints of pain at the moment. No moaning or facial grimacing noted. On continuous oxygen therapy @5LPM via nasal cannula with no labored breathing/SOB noted. Not in any type of distress. On glucose monitoring Q4H. Awaiting for sputum, urine and blood culture result. Safety measures in place. Bed in lowest position with bed alarm on and call light within reach. Will continue to monitor and assess patient
--- NOTE | 2018-05-17 19:45 | NUR ---
MS RN NOTES Noted patient to be more awake and alert. Will continue to monitor patient
[2018-05-17 20:39] VITALS: BP_SYST 125; BP_SYST 126; BP_DIAS 62; BP_DIAS 72
--- NOTE | 2018-05-17 23:35 | NUR ---
MS RN NOTES Noted patient removing nasal cannula. Re-oriented patient and reminded the benefits of oxygen therapy. Patient is more awake and alert but confused. Will continue to monitor patient.
[2018-05-18] MEDS: METRONIDAZOLE 500MG/ NS 100ML 500 MG in PREMIX 1 EA IV SCH ×4 (00:37→17:22)
[2018-05-18] MEDS: PIPERACILLIN /TAZOBACTAM 3.375 G in IV D5W 50 ML IV SCH ×4 (00:37→18:22)
[2018-05-18] MEDS: ALBUTEROL FS 2.5 MG/3 ML VIAL.NEB NEB SCH ×4 (00:56→19:37)
[2018-05-18] MEDS: IPRATROPIUM NEB FS 0.5 MG/2.5 ML AMPUL.NEB NEB SCH ×4 (00:56→19:37)
[2018-05-18] MEDS: BLOOD SUGAR DIAGNOSTIC 1 EACH STRIP IN SCH ×5 (01:49→17:26)
--- NOTE | 2018-05-18 05:27 | NUR ---
MS MIGUEL CLOSING NOTES Patient remained in bed, sleeping, easily aroused. No complaints of pain, moaning or face grimacing noted. On continuous oxygen therapy @5LPM via nasal cannula with breathing treatment Q6H. No SOB noted. Not in any type of distress. Oxygen saturating @93-94%. IV on left forearm #20g: patent and intact with D5W 20mEq Kcl @100ml/hr running, tolerating well. All needs provided and met. Continue on NPO. Awaiting for family's decision for patient care. Continue on antibiotic treatment. Safety measures in place. Bed in lowest position with bed alarm on and call light within reach. Will endorse to oncoming shift nurse Addendum: 05/18/18 at 0532 by MORIAH HARVEY RN BS 130. No coverage given per protocol and patient is on NPO
[2018-05-18] MEDS: VANCOMYCIN 1 GM in IV NS 0.9% 250 ML IV SCH ×2 (06:51→18:51)
[2018-05-18] MEDS: ACETYLCYSTEINE 10% SOLN 400 MG/4 ML VIAL NEB SCH ×2 (07:08→15:05)
--- NOTE | 2018-05-18 07:10 | NUR ---
ms rn initial notes Received patient in bed, asleep, head of bed elevated, no SOB or distress noted, on 4lpm via NC with 02 sat of 96%. Patient is NPO with IVF infusing well. IV intact and patent. No facial grimace noted. Call light with in patient reach, will continue to monitor accordingly.
[2018-05-18 08:00] VITALS: BP 117/63
[2018-05-18 08:15] LABS: CALCIUM, SERUM 7.7 mg/dL (8.5-10.1); CARBON DIOXIDE 21 mmol/L (21-32); CHLORIDE 109 mmol/L (98-107); CREATININE 0.9 mg/dL (0.6-1.3); EOSINOPHILS % (AUTO) 1.8 % (0.0-6.0); GLUCOSE 147 mg/dL (74-106); HEMATOCRIT 36 % (39-51); HEMOGLOBIN 12.7 g/dL (13.5-17.5); LYMPHOCYTES # (AUTO) 1.2 /CMM (0.8-4.8); LYMPHOCYTES % (AUTO) 13.4 % (20.0-44.0); MAGNESIUM 1.8 mg/dL (1.8-2.4); MEAN CORPUSCULAR HEMOGLOBIN 35 PG (26.0-33.0); MEAN CORPUSCULAR HGB CONC 35 g/dl (31.0-36.0); MEAN CORPUSCULAR VOLUME 100 fL (80-96); MONOCYTES # (AUTO) 0.7 /CMM (0.1-1.30); MONOCYTES % (AUTO) 8.2 % (2.0-12.0); NEUTROPHILS # (AUTO) 6.9 /CMM (1.8-8.9); NEUTROPHILS % (AUTO) 76.6 % (43.0-81.0); PHOSPHORUS 2.5 mg/dL (2.5-4.9); PLATELET COUNT (AUTO) 244 /CMM (150-450); RDW COEFFICIENT OF VARIATION 12.4 (11.5-15.0); RED BLOOD CELL COUNT(AUTO) 3.63 MIL/uL (4.5-6.0); SODIUM SERUM 140 mmol/L (136-145); UREA NITROGEN, BLOOD 7 mg/dL (7-18)
[2018-05-18] MEDS: ENOXAPARIN SODIUM 30 MG/0.3 ML DISP.SYRIN SQ SCH (09:23)
[2018-05-18] MEDS: LACTOBACILLUS RHAMNOSUS GG 1 EACH CAP.SPRINK NG SCH ×2 (09:24→17:00)
[2018-05-18] MEDS: MEMANTINE HCL 5 MG TABLET NG SCH (09:24)
[2018-05-18] MEDS: PAROXETINE HCL 20 MG TABLET NG SCH (09:24)
[2018-05-18] MEDS: BENAZEPRIL HCL 10 MG TABLET NG SCH (09:24)
[2018-05-18] MEDS: PANTOPRAZOLE 40 MG/PACK PACK NG SCH (09:24)
[2018-05-18 16:00] VITALS: BP 139/64
[2018-05-18] MEDS: INSULIN REGULAR, HUMAN 100 UNIT/ML 3 ML VIAL SQ PRN (17:28)
[2018-05-18] MEDS: Potassium Chloride 20 MEQ in IV D5W 1,000 ML IV PRN (17:29)
[2018-05-18] MEDS: DONEPEZIL 5 MG TABLET NG SCH (17:29)
--- NOTE | 2018-05-18 17:30 | NUR ---
MS RN NOTES Held PO medication due to patient is NPO.
--- NOTE | 2018-05-18 19:18 | NUR ---
ms rn closing notes All needs provided, attended, and anticipated. Patient seen and examined by Jhon and spoke to Al for hospice eval tomorrow. Endorsed to next shift RN to continue care.
[2018-05-18] MEDS: POTASSIUM CL. PREMIX PERIPHER. 50 ML IV SCH ×2 (19:35→20:59)
--- NOTE | 2018-05-18 19:43 | NUR ---
MS RN NOTES Patient received in bed, sleeping, easily aroused. On continuous oxygen therapy @5LPM via nasal cannula. Potassium level is 3.0, called Pharmacy and spoke to Genna with new order of Potassium replacement 10mEq in 50ml to be given now. Informed Joe (SNAGGER, Hospitalist). Joe ordered to add 30mEq on top of 10mEq from pharmacy. Patient to be evaluated for Hospice Care tomorrow morning, per Joe. IV on left forearm: patent. HOB elevated. Safety measures in place. Will continue to monitor, reposition every 2 hours and assess patient.
[2018-05-18 20:00] VITALS: BP 114/62
[2018-05-18] MEDS: POTASSIUM CHLORIDE 10 MEQ/50 ML PREMIXED IVPB FOR PERIPHERAL LINE IV SCH ×2 (22:29→23:51)
[2018-05-19] MEDS: BLOOD SUGAR DIAGNOSTIC 1 EACH STRIP IN SCH ×2 (00:17→06:22)
[2018-05-19] MEDS: POTASSIUM CHLORIDE 10 MEQ/50 ML PREMIXED IVPB FOR PERIPHERAL LINE IV SCH (00:17)
[2018-05-19] MEDS: ACETYLCYSTEINE 10% SOLN 400 MG/4 ML VIAL NEB SCH ×4 (00:21→23:03)
[2018-05-19] MEDS: IPRATROPIUM NEB FS 0.5 MG/2.5 ML AMPUL.NEB NEB SCH ×4 (01:46→20:30)
[2018-05-19] MEDS: ALBUTEROL FS 2.5 MG/3 ML VIAL.NEB NEB SCH ×4 (01:46→19:30)
[2018-05-19] MEDS: Potassium Chloride 20 MEQ in IV D5W 1,000 ML IV PRN ×2 (04:22→17:55)
--- NOTE | 2018-05-19 05:43 | NUR ---
MS RN CLOSING NOTES Patient remained in bed, resting comfortably, easily aroused. Opens eyes and asked what I'm doing during hourly rounds. On continuous oxygen therapy @4LPM via nasal cannula with no SOB noted. Not in any type of distress. HOB elevated. Turned and repositioned every two hours with bilateral lower extremities and elbows offloaded. IV on left forearm in place: patent and intact with D5W +20 mEq Kcl running at 100ml/hr. Potassium replaced. All needs provided and met. Kept patient clean and dry. Bed in lowest position with bed alarm on and call light within reach. Will endorse to oncoming shift nurse.
[2018-05-19 06:54] LABS: CALCIUM, SERUM 8.2 mg/dL (8.5-10.1); CARBON DIOXIDE 23 mmol/L (21-32); CHLORIDE 108 mmol/L (98-107); CREATININE 0.8 mg/dL (0.6-1.3); GLUCOSE 156 mg/dL (74-106); POTASSIUM 3.2 mmol/L (3.5-5.1); SODIUM SERUM 139 mmol/L (136-145); UREA NITROGEN, BLOOD 5 mg/dL (7-18)
--- NOTE | 2018-05-19 07:25 | NUR ---
ms rn initial notes Receive patient in bed, asleep, head of bed elevated, no SOB or distress noted. On 02 @ 4lpm via NC and tolerated well with 02 sat of 96%. No facial grimace noted. On comfort measures care. IV intact and patent with IVF infusing well. Call light with in patient reach, will continue to monitor accordingly.
[2018-05-19 08:00] VITALS: BP 116/59
[2018-05-19] MEDS: ENOXAPARIN SODIUM 30 MG/0.3 ML DISP.SYRIN SQ SCH (08:48)
[2018-05-19] MEDS: PANTOPRAZOLE 40 MG/PACK PACK NG SCH (08:49)
[2018-05-19] MEDS: MEMANTINE HCL 5 MG TABLET NG SCH (08:49)
[2018-05-19] MEDS: BENAZEPRIL HCL 10 MG TABLET NG SCH (08:49)
[2018-05-19] MEDS: LACTOBACILLUS RHAMNOSUS GG 1 EACH CAP.SPRINK NG SCH ×2 (08:49→16:12)
[2018-05-19] MEDS: PAROXETINE HCL 20 MG TABLET NG SCH (08:49)
--- NOTE | 2018-05-19 08:57 | NUR ---
ms rn notes held all PO medications due to patient is NPO. Will continue to monitor.
[2018-05-19 16:00] VITALS: BP_SYST 121; BP_SYST 128; BP_DIAS 59; BP_DIAS 71
--- NOTE | 2018-05-19 16:13 | NUR ---
ms rn notes held all PO medications due to patient is NPO. Will continue to monitor.
--- NOTE | 2018-05-19 16:53 | NUR ---
RT NOTE PATIENT REFUSED SUCTION AFTER EXPLAINING RISKS AND BENEFITS. PATIENT IS AWAKE/ALERT. PATIENT REMAINS ON 36% NASAL CANNULA AND IS TOLERATING WELL.
[2018-05-19] MEDS: DONEPEZIL 5 MG TABLET NG SCH (17:52)
--- NOTE | 2018-05-19 17:56 | NUR ---
ms rn notes held all PO medications due to patient is NPO. Will continue to monitor.
--- NOTE | 2018-05-19 18:26 | NUR ---
ms rn notes informed MD regarding patient potassium level of 3.2 and per MD no new order, D/C previous IV hydration and change it to D5NS @ 75cc/hr. All orders carried out and noted.
[2018-05-19] MEDS ORDERED: IV D5/ 0.9% NACL 1,000 ML IV PRN (18:30)
--- NOTE | 2018-05-19 19:10 | NUR ---
ms rn closing notes All needs provided, attended, and anticipated. Patient asleep and comfortable. Endorsed to next shift RN to continue care. Call light with in reach.
--- NOTE | 2018-05-19 19:38 | NUR ---
MS RN NOTES Report received. Patient received in bed, HOB elevated, awake. Not in any type of distress. On continuous oxygen therapy @4LPM via nasal cannula with no SOB/labored breathing noted. IV on left forearm noted. Awaiting hospice eval. On comfort measures. Potassium level of 3.2 with no replacement per MD per endorsement. New order of D5NS @75ml/hr for fluids. Safety measures in place. Will continue to monitor and assess patient.
[2018-05-19 20:38] VITALS: BP 132/69
[2018-05-20] MEDS: IPRATROPIUM NEB FS 0.5 MG/2.5 ML AMPUL.NEB NEB SCH ×2 (01:30→07:35)
[2018-05-20] MEDS: ALBUTEROL FS 2.5 MG/3 ML VIAL.NEB NEB SCH ×2 (01:30→07:43)
--- NOTE | 2018-05-20 05:59 | NUR ---
MS RN CLOSING NOTES Patient remained in bed, sleeping comfortably, easily aroused. On continuous oxygen therapy @4LPM via nasal cannula with no SOB/labored breathing noted. HOB elevated. Not in any type of distress. IV on left forearm 20g: patent and intact with D5NS @75ml/hr for fluids replacement. Awaiting for hospice eval. On comfort measures. All needs provided and met. Safety measures in place. Bed in lowest position with bed alarm on and call light within reach. Will endorse to oncoming shift nurse
[2018-05-20 07:03] LABS: CALCIUM, SERUM 8.1 mg/dL (8.5-10.1); CARBON DIOXIDE 24 mmol/L (21-32); CHLORIDE 110 mmol/L (98-107); GLUCOSE 146 mg/dL (74-106); POTASSIUM 3.6 mmol/L (3.5-5.1); SODIUM SERUM 142 mmol/L (136-145); UREA NITROGEN, BLOOD 5 mg/dL (7-18)
[2018-05-20 07:16] LABS: CREATININE 0.7 mg/dL (0.6-1.3)
[2018-05-20] MEDS: ACETYLCYSTEINE 10% SOLN 400 MG/4 ML VIAL NEB SCH (07:35)
--- NOTE | 2018-05-20 07:51 | NUR ---
RN OPENING NOTES RECEIVED PT. PT IS STABLE AND SLEEPING IN BED. NO S/S OF RESP DISTRESS OR SOB. NO C/O PAIN AT THIS TIME. PT RECEIVING O2 4L VIA NC, O2 SAT >95%. IV ACCESS LOCATED ON LFA 20 G INFUSING D5NS AT 75 ML/HR. PT CURRENTLY NPO. PT CURRENTLY ON COMFORT MEASURES, IV ABX D/C. PER HOSPITALIST PJ PT IS AWAITING HOSPICE EVAL. SAFETY MEASURES IN PLACE, CALL LIGHT WITHIN REACH. WILL CONTINUE TO MONITOR.
[2018-05-20 08:00] VITALS: BP 149/73
[2018-05-20] MEDS: BENAZEPRIL HCL 10 MG TABLET NG SCH (08:47)
[2018-05-20] MEDS: LACTOBACILLUS RHAMNOSUS GG 1 EACH CAP.SPRINK NG SCH (08:47)
[2018-05-20] MEDS: MEMANTINE HCL 5 MG TABLET NG SCH (08:48)
[2018-05-20] MEDS: PANTOPRAZOLE 40 MG/PACK PACK NG SCH (08:48)
[2018-05-20] MEDS: PAROXETINE HCL 20 MG TABLET NG SCH (08:48)
[2018-05-20] MEDS: ENOXAPARIN SODIUM 30 MG/0.3 ML DISP.SYRIN SQ SCH (08:48)
[2018-05-20 09:00] VITALS: BP 149/73
--- NOTE | 2018-05-20 12:21 | NUR ---
RN NOTES PT EVALUATED BY CLINICAL DATA ASSISTANT FROM [facility] PT TO BE D/C FROM INPATIENT STATUS AND READMITTED HOSPICE PT. NEW ORDERS RECEIVED. ADMITTING MADE AWARE OF CHANGE OF STATUS FROM INPATIENT TO HOSPICE. WILL FAX ORDERS TO PHARMACY ONCE PT IS IN THE SYSTEM. WILL CONTINUE TO MONITOR.
[2018-05-20] MEDS ORDERED: LORAZEPAM INJ 2 MG/ML VIAL IVP PRN (12:30)
[2018-05-20] MEDS ORDERED: Z GUARD REMEDY 2 OZ OINT TP PRN (12:30)
[2018-05-20] MEDS ORDERED: ONDANSETRON 4 MG TAB.RAPDIS SL PRN (12:30)
[2018-05-20] MEDS ORDERED: ATROPINE SULFATE OPHTH SOLN 15 ML BOTTLE SL PRN (12:30)
[2018-05-20] MEDS ORDERED: BISACODYL SUPP (10 MG) 10 MG/SUPP.RECT SUPP.RECT RC PRN (12:30)
[2018-05-20] MEDS ORDERED: ACETAMINOPHEN 650 MG/SUPP.RECT RC PRN (12:30)
[2018-05-20] MEDS ORDERED: MORPHINE SULFATE SOLN CONCENTRATED 20 MG/ML SL PRN (12:30)
--- NOTE | 2018-05-20 13:45 | NUR ---
DISCHARGE NOTE PT DISCHARGED TO HOSPICE CARE, IN FACILITY. PT IS COMFORT MEASURES ONLY, PAIN MANAGEMENT ORDERED. IV ACCESS REMAINS. EVALUATED BY [facility] RN. WILL CONTINUE PT CARE HOSPICE ADMISSION.
== END 2018-05-20 13:30 | disposition hospice, home (50) | DRG 177 ==
LOC: ER 19:11 → TELE 22:13 → MED 04-30 09:42
PROVIDERS: ADMIT Legal Medicine; ATTEND Legal Medicine
DX: J69.0 Pneumonitis due to inhalation of food and vomit (principal); E43 Unspecified severe protein-calorie malnutrition; G92 Toxic encephalopathy; J96.01 Acute respiratory failure with hypoxia; N39.0 Urinary tract infection, site not specified; E87.0 Hyperosmolality and hypernatremia; K59.39 Other megacolon; R64 Cachexia; J15.6 Pneumonia due to other Gram-negative bacteria; R00.1 Bradycardia, unspecified; I10 Essential (primary) hypertension; G30.9 Alzheimer's disease, unspecified; F02.80 Dementia in other diseases classified elsewhere, unspecified severity, without behavioral disturbance, psychotic disturbance, mood disturbance, and anxiety; E88.09 Other disorders of plasma-protein metabolism, not elsewhere classified; E86.0 Dehydration; E78.5 Hyperlipidemia, unspecified; I25.10 Atherosclerotic heart disease of native coronary artery without angina pectoris; Z51.5 Encounter for palliative care; R13.10 Dysphagia, unspecified; E11.9 Type 2 diabetes mellitus without complications; Z68.25 Body mass index [BMI] 25.0-25.9, adult; M62.50 Muscle wasting and atrophy, not elsewhere classified, unspecified site; N40.1 Benign prostatic hyperplasia with lower urinary tract symptoms; G20 Parkinson's disease
CPT/HCPCS: 31720; 36415; 70450-TC; 71045-TC; 74230-TC; 80048-TC; 80076-TC; 80202-TC; 81000-TC; 82140-TC; 82962-TC; 83605-TC; 83735-TC; 84100-TC; 84484-TC; 85025-TC; 85610-TC; 85730-TC; 86850-TC; 87040-TC; 87070-TC; 87081-TC; 87086-TC; 92526; 92611-TC; 94799-TC; 97110-TC; 97530-TC; A4216; A4349; A4606; J0360; J0696; J1630; J1650; J1815; J1940; J1956; J2543; J3370; J3475; J3480; J3490; J7030; J7042; J7050; J7060; J7070; Z7610

== ENCOUNTER 2018-05-20 12:50 | Inpatient (IN) | payer OTHER ==
[~2018-05-20] VITALS: Ht 182.9 cm; Wt 86.2 kg
[~2018-05-20 12:50] MED LIST: ACET-2067 PO; AZIT250T13 PO; BENA10TA9 PO; DONE5TAB34 PO; MEMA10TA PO; PARO20TA7 PO
--- NOTE | 2018-05-20 14:30 | NUR ---
ADMISSION NOTE PT ADMITTED INTO [facility]. NEW ORDERS FAXED TO ADMISSIONS AND PHARMACY. AWAITING PLACEMENT OF MED ORDERS. WILL CONTINUE TO MONITOR.
[2018-05-20 16:00] VITALS: BP 120/59
[2018-05-20] MEDS ORDERED: ACETAMINOPHEN 650 MG/SUPP.RECT RC PRN (16:30)
[2018-05-20] MEDS ORDERED: BISACODYL SUPP (10 MG) 10 MG/SUPP.RECT SUPP.RECT RC PRN (16:30)
[2018-05-20] MEDS ORDERED: LORAZEPAM ORAL SOLN 2 MG/ML ORAL.CONC SL PRN (16:30)
[2018-05-20] MEDS ORDERED: ONDANSETRON 4 MG TAB.RAPDIS SL PRN (16:30)
[2018-05-20] MEDS ORDERED: ALBUTEROL FS 2.5 MG/3 ML VIAL.NEB NEB PRN (16:30)
[2018-05-20] MEDS ORDERED: ATROPINE SULFATE OPHTH SOLN 15 ML BOTTLE SL PRN ×2 (16:30→16:31)
[2018-05-20] MEDS ORDERED: MORPHINE SULFATE SOLN CONCENTRATED 20 MG/ML SL PRN (17:00)
[2018-05-20] MEDS: IV D5/ 0.9% NACL 1,000 ML IV PRN (17:25)
--- NOTE | 2018-05-20 18:35 | NUR ---
RN CLOSING NOTES PT IN BED RESTING. NO S/S OF RESP DISTRESS/SOB. PT DOES NOT APPEAR TO BE IN PAIN AT THIS TIME. PRN PAIN/ANXIETY MEDICATION ORDERS OBTAINED. PT IS TO BE COMFORT MEASURES ONLY, NO BLOOD DRAWS/TESTING TO BE DONE. ALL PT NEEDS ANTICIPATED AND MET, SAFETY MEASURES IN PLACE, CALL LIGHT WITHIN REACH. WILL ENDORSE TO RETOUCHER FOR ROSEANNE.
[2018-05-20 20:00] VITALS: BP 143/74
--- NOTE | 2018-05-21 06:55 | NUR ---
LITIGATION LEGAL SECRETARY NOTES PT LETHARGIC. NOT IN ANY DISTRESS. NO SOB NOTED. NO S/SX OF ANY PAIN OR DISCOMFORT AT THIS TIME. WITH IVF INFUSING WELL. MONITORED ACCORDINGLY. CALL LIGHT WITHIN REACH. BED IN LOWEST POSITION. SR UP X3 WITH BED ALARM ON FOR SAFETY. WILL ENDORSE TO NEXT SHIFT.
[2018-05-21] MEDS: IV D5/ 0.9% NACL 1,000 ML IV PRN (07:36)
[2018-05-21 08:00] VITALS: BP 130/78
--- NOTE | 2018-05-21 08:00 | NUR ---
M/S RN - Assessment Patient more awake and alert, currently under [facility] [phone], denies pain, not in any form of distress. IVF D5NS at 75 ml/hr infusing well on the LFA with no signs of infiltration. Skin assessment done and documented. Patient turned and repositioned q2h for comfort and circulation. Fall precautions maintained. Will continue with current medical management.
[2018-05-21] MEDS: Z GUARD REMEDY 4 OZ OINT TP SCH (08:19)
--- NOTE | 2018-05-21 13:40 | NUR ---
M/S RN - Notes Patient awake, appears to be comfortable, calm and cooperative with care, on 3lpm via NC, no apparent distress seen. Will continue to monitor closely.
--- NOTE | 2018-05-21 18:03 | NUR ---
M/S RN - End of shift notes No new events seen. Will continue with current plan of care.
--- NOTE | 2018-05-21 19:30 | NUR ---
rn ms opening hospice notes received patient in bed awake alert and oriented x 1. noted verbally responsive to simple questions, respirations even and unlabored with equal rise and fall of chest on 02 3L via nc spo2 at 97%, denies any pain or discomfort at this time, no facial grimacing present.Right fa #22 gauge intact and patent, no redness no infiltration present, IVF running as ordered. oriented to staff and call light, call light kept within reach, safety precautions rendered remains comfortable at this time, will continue to monitor.
[2018-05-21 20:00] VITALS: BP 148/65
[2018-05-22] MEDS: IV D5/ 0.9% NACL 1,000 ML IV PRN ×2 (04:42→18:26)
--- NOTE | 2018-05-22 06:25 | NUR ---
RN MS HOSPICE CLOSING NOTES PATIENT REMAINS IN BED , AWAKE ALERT AND ORIENTED X 1, VERBALLY RESPONSIVE, RESPIRATIONS EVEN AND UNLABORED WITH EQUAL RISE AND FALL OF CHEST ON 02 3L VIA NC, IV SITE TO RIGHT FA #22 INTACT AND PATENT, IVF RUNNING ORDERED, NO REDNESS, NO INFILTRATION PRESENT. APPEARS TO BE COMFORTABLE, NO FACIAL GRIMACING OR MOANS NOTED THROUGHOUT. PATIENT REMAINS CLEAN AND DRY, SACRAL ASSESSED NOTED INTACT , Z-GUARD APPLIED AND COVERED WITH MEPILEX FOR SKIN MANAGEMENT, OFFLOADED SITE. SAFETY PRECAUTIONS IN PLACE, CALL LIGHT KEPT WITHIN REACH, ALL NEEDS ATTENDED , WILL CONTINUE TO MONITOR AND ENDORSE TO NEXT SHIFT.
--- NOTE | 2018-05-22 07:32 | NUR ---
MS RN OPENING NOTES Received patient asleep on semi-thomas's position with O2 inhalation @ 3LPM via NC. Breathing even and unlabored. No s/sx of pain noted at this time. With NS infusing well at 75ml/hr as ordered attached to RFA with G22, no s/sx of infection noted on site. Ensured safety precautions, call light within easy reach. Will continue to monitor.
[2018-05-22 08:58] VITALS: BP 149/70
[2018-05-22] MEDS: Z GUARD REMEDY 4 OZ OINT TP SCH (09:33)
[2018-05-22 16:00] VITALS: BP 137/69
--- NOTE | 2018-05-22 18:51 | NUR ---
MS RN CLOSING NOTES Asleep on bed with on semi-thomas's position with O2 inhalation at 2LMP. No SOB/dyspnea noted all throughout the shift. Still with NS infusing well @ 75ml/hr attached to IV site @RFA with G22, no s/sx of infection noted. Kept comfortable all throughout the shift, repositioned q 2 hrs. No complains of and/or s/sx of pain noted. A/O x1, able to follow simple commands, responsive to tactile stimuli. Afebrile the whole shift, no new complaints made. Endorsed to the next shift for continuity of care.
--- NOTE | 2018-05-22 19:45 | NUR ---
rn ms opening hospice notes received patient in bed awake alert and oriented x 1. noted verbally responsive to simple questions noted with episodes of forgetfulness and confusion, respirations even and unlabored with equal rise and fall of chest on 02 3L via nc spo2 at 96%, denies any pain or discomfort at this time, no facial grimacing present.Right fa #22 gauge intact and patent, no redness no infiltration present, IVF running as ordered. oriented to staff and call light, call light kept within reach, safety precautions rendered remains comfortable at this time, will continue to monitor.
[2018-05-22 20:00] VITALS: BP 134/62
[2018-05-23] MEDS ORDERED: FERR325T23 PO ×2 (03:22)
[2018-05-23] MEDS ORDERED: FLUO20CA36 PO (03:22)
[2018-05-23] MEDS ORDERED: ASPI-605 PO (03:22)
[2018-05-23] MEDS ORDERED: ASCO500T9 PO (03:22)
[2018-05-23] MEDS ORDERED: ATOR40TA PO (03:22)
[2018-05-23] MEDS ORDERED: DICL100G16 TP (03:22)
[2018-05-23] MEDS ORDERED: DOCU-141 PO (03:22)
[2018-05-23] MEDS ORDERED: CLOP75TA15 PO (03:22)
[2018-05-23] MEDS ORDERED: QUET25TA PO (03:22)
[2018-05-23] MEDS ORDERED: TAMS-12 PO (03:22)
--- NOTE | 2018-05-23 03:24 | NUR ---
RN MS NOTES DISREGARD MED RECON ENTERED 05/23/18 ERROR WRONG PATIENT
[2018-05-23] MEDS: IV D5/ 0.9% NACL 1,000 ML IV PRN (06:10)
--- NOTE | 2018-05-23 06:33 | NUR ---
RN MS HOSPICE CLOSING NOTES PATIENT REMAINS IN BED , AWAKE ALERT AND ORIENTED X 1, VERBALLY RESPONSIVE, NOTED WITH EPISODES OF CONFUSION, RESPIRATIONS EVEN AND UNLABORED WITH EQUAL RISE AND FALL OF CHEST ON 02 3L VIA NC, IV SITE TO RIGHT FA #22 INTACT AND PATENT, IVF RUNNING ORDERED, NO REDNESS, NO INFILTRATION PRESENT. APPEARS TO BE COMFORTABLE, NO FACIAL GRIMACING OR MOANS NOTED THROUGHOUT SHIFT. PATIENT REMAINS CLEAN AND DRY, SACRAL ASSESSED NOTED INTACT , Z-GUARD APPLIED AND COVERED WITH MEPILEX FOR SKIN MANAGEMENT NOTED WITH LEFT BUTTOCK WOUND, APPEARS TO BE A BLISTER , WOUND CARE PROVIDED, OFFLOADED SITE. SAFETY PRECAUTIONS IN PLACE, CALL LIGHT KEPT WITHIN REACH, ALL NEEDS ATTENDED , WILL CONTINUE TO MONITOR AND ENDORSE TO NEXT SHIFT.
--- NOTE | 2018-05-23 07:22 | NUR ---
CABLE ASSEMBLER OPENING NOTE received bedside SBAR report. Patient in bed, asleep, easily awaken. Responsive to name. Bed is locked in lowest position, gasoline power shovel operator rails up x3. Close to the nurses station. Unable to use call light/follow directions. Respirations even and unlabored with equal rise and fall of chest on 3L via nasal cannula. Spo2 at 97%, denies any pain or discomfort at this time, no facial grimacing present. Right forearm #22 gauge peripheral IV catheter intact and patent, no redness no infiltration present, IVF running as ordered. Patient repositioned. Safety precautions rendered remains comfortable at this time, will continue to monitor.
[2018-05-23 08:00] VITALS: BP 159/83
[2018-05-23] MEDS: Z GUARD REMEDY 4 OZ OINT TP SCH (09:16)
--- NOTE | 2018-05-23 12:05 | NUR ---
patient to be transferred to [facility] with Hospice care. Charge nurse Bijan owen. Dr Farrell aware per case management.
--- NOTE | 2018-05-23 14:14 | NUR ---
split leather department supervisor scheduled at 1500
--- NOTE | 2018-05-23 14:53 | NUR ---
CALLED [facility] [phone] GAVE TELEPHONE REPORT TO MIGUEL ONOFRE. AWAITING FOR THE AMBULANCE. PERIPHERAL LINE TO STAY INTACT. PATIENT TO BE TRANSFERRED TO SNF WITH PERIPHERAL IV FOR CONTINUES FLUIDS/HYDRATION. PATIENT IS NPO.
--- NOTE | 2018-05-23 15:13 | NUR ---
PATIENT LEFT THE HOSPITAL PREMISES IN STABLE CONDITION VIA GURNEY ACCOMPANIED BY THE AMBULANCE STAFF.
== END 2018-05-23 15:00 | disposition hospice, inpatient (51) | DRG 177 ==
LOC: HOSPICE 12:50
PROVIDERS: ADMIT Internal Medicine; ATTEND Internal Medicine
DX: J69.0 Pneumonitis due to inhalation of food and vomit (principal); J96.01 Acute respiratory failure with hypoxia; E43 Unspecified severe protein-calorie malnutrition; E87.1 Hypo-osmolality and hyponatremia; K59.39 Other megacolon; R64 Cachexia; E78.5 Hyperlipidemia, unspecified; I10 Essential (primary) hypertension; R13.10 Dysphagia, unspecified; F03.90 Unspecified dementia, unspecified severity, without behavioral disturbance, psychotic disturbance, mood disturbance, and anxiety; N40.0 Benign prostatic hyperplasia without lower urinary tract symptoms; Z51.5 Encounter for palliative care; R73.9 Hyperglycemia, unspecified; E88.09 Other disorders of plasma-protein metabolism, not elsewhere classified; Z68.25 Body mass index [BMI] 25.0-25.9, adult; M62.50 Muscle wasting and atrophy, not elsewhere classified, unspecified site
CPT/HCPCS: 94799-TC; J3490; J7030; J7042; J7070